=== PATIENT | female | born 1985 | race Caucasian/White ===

== ENCOUNTER 2018-09-02 18:46 | Inpatient (IN) | payer MEDICARE ==
[2018-09-02 18:53] VITALS: BMI 30.7
--- NOTE | 2018-09-02 19:33 | PDOC ---
Attending Attestation - Resident Resident Name: LenoHollis malhotra - ED Attending Attestation I have performed the following: I have examined & evaluated the patient, The case was reviewed & discussed with the resident, I agree w/resident's findings & plan, Exceptions are as noted - HPI HPI: 09/02/18 20:03 Ms Leiva is a 33 yo F who reports no past medical history She presents to the ER via ambulance with her due to alterations in mental status He noticed yesterday that she was more quiet and less responsive She awoke today at approximately noon and he noted that she was much more quiet He decided to call ems when her symptoms did not improve this evening She denies headache or neck pain She denies recent viral illness She denies pain of any kind in the chest or the abdomen No nausea or vomiting No diarrhea No prior episodes like this She can not tell me if she feels confused She does not respond when I ask why her responses are so slow - Physicial Exam PE: 09/02/18 19:59 GENERAL: The patient is in no acute distress, calm, answers all questions by examiner, pale appearing HEAD: Normal EYES: PERRLA, EOMI, sclera anicteric, conjunctiva clear. ENT: Ears normal, nares patent, oropharynx clear without exudates. Moist mucous membranes. NECK: Normal range of motion, supple without nuchal rigidity LUNGS: Breath sounds equal, clear to auscultation bilaterally. No wheezes, and no crackles. HEART:Regular rate and rhythm, normal S1 and S2 without murmur, rub or gallop. ABDOMEN: Soft, nontender, normoactive bowel sounds. No guarding, no rebound. EXTREMITIES: Normal range of motion, no edema. NEUROLOGICAL: Cranial nerves II through XII grossly intact. Normal speech. Pt is slow to answer questions Seems to be searching for her response Is able to focus on examiner Moves all extremities, ambulatory with a steady gait MUSCULOSKELETAL: Back non-tender to palpation, no CVA tenderness SKIN: Warm, Dry, normal turgor, no rashes or lesions noted. 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 - Medical Decision Making 09/02/18 20:08 DD is broad: Fluid and electrolyte disturbances, Infection (urinary tract, respiratory tract , skin and soft tissue), Drug use, Metabolic disorders (hypoglycemia, hypercalcemia, uremia, liver failure, thyrotoxicosis), Will do: Labs UA U tox Ekg CXR CT head Admit 09/02/18 20:17 Laboratory Tests 09/02/18 09/02/18 19:15 19:56 WBC 12.5 H Hgb 5.3 L* Hct 18.6 L Plt Count 487 H POC Glucometer 360 09/02/18 20:26 Laboratory Tests 09/02/18 19:41 PT with INR 14.20 H INR 1.20 H 09/02/18 20:38 Laboratory Tests 09/02/18 19:41 Urine Blood 1+ H Urine Nitrite Negative Ur Leukocyte Esterase 1+ H 09/02/18 20:42 Laboratory Tests 09/02/18 19:41 Urine WBC (Auto) 73 Urine RBC (Auto) 7 UTI - Will give Ceftriaxone Given altered mentation - CT head and LP Anemia - Will transfuse Elevated blood glucose (possibly diabetic) EKG - ST rate of 110 bpm, axis nml, intervals abnormal :pr: 136ms, QRS: 92ms, QTc: 519ms, no st elevation, st depression I, v6, nml r wave progression, no pathological q waves 09/02/18 20:47 09/02/18 21:24 Laboratory Tests 09/02/18 09/02/18 09/02/18 19:41 19:56 20:30 VBG pH 7.38 POC VBG pCO2 43.0 POC VBG pO2 37.0 Mixed VBG HCO3 24.5 Sodium 137 Potassium 3.6 Chloride 104 Carbon Dioxide 26 BUN 11 Creatinine 0.7 AST 9 L ALT 12 L TSH 1.87 Serum , Qual Negative Admit to hospitalist service
[2018-09-02] MEDS ORDERED: SODIUM CHLORIDE 1,000 ML IV STA (19:40)
--- NOTE | 2018-09-02 19:52 | PDOC ---
History of Present Illness - General Chief Complaint: Altered Mental Status Stated Complaint: SICK Time Seen by Provider: 09/02/18 19:31 History Source: Patient Exam Limitations: Clinical Condition - History of Present Illness Initial Comments: 09/02/18 19:43 Patient is a 33F with no significant medical history here today complaining of altered mental status this morning. Her is the main provider of the history. Patient is able to speak, and denies pain, but does not answer most questions. states that he found her this afternoon clicking a mouse on a computer that was off and was refusing to talk to him. EMS reports that FSG was in 400s. denies any fevers, chills, nausea, vomiting. Her states that they have been trying to get but she had her period which ended yesterday and was heavy. reports that she was talking less yesterday. No headache, neck pain, back pain, abdominal pain, and dysuria complained of by patient or noted by . denies psych history, psych admissions, psych meds. denies drug use. 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 Past History - Past Medical History Allergies/Adverse Reactions: Allergies Allergy/AdvReac Type Severity Reaction Status Date / Time No Known Allergies Allergy Verified 09/02/18 19:31 Home Medications: Ambulatory Orders NK [No Known Home Medication] 09/02/18 - Suicide/Smoking/Psychosocial Hx Smoking History: Unknown if ever smoked Review of Systems - Review of Systems Able to Perform ROS?: No (2/2 clinical condition) *Physical Exam - Vital Signs Last Vital Signs Temp Pulse Resp BP Pulse Ox 98.7 F 106 H 20 174/92 H 100 09/02/18 18:48 09/02/18 18:48 09/02/18 18:48 09/02/18 18:48 09/02/18 18:48 - Physical Exam Comments: 09/02/18 19:53 GENERAL: Awake, alert, and fully oriented, in no acute distress HEAD: No signs of trauma, normocephalic, atraumatic EYES: PERRLA, EOMI, sclera anicteric, conjunctiva clear ENT: Auricles normal inspection, hearing grossly normal, nares patent, oropharynx clear without exudates. Moist mucosa NECK: Normal ROM, supple, no lymphadenopathy, JVD, or masses LUNGS: No distress, clear to auscultation bilaterally HEART: Regular rate and rhythm, normal S1 and S2, no murmurs, rubs or gallops, peripheral pulses normal and equal bilaterally. ABDOMEN: Soft, nontender, normoactive bowel sounds. No guarding, no rebound. No masses EXTREMITIES: Normal inspection, Normal range of motion, no edema. No clubbing or cyanosis. NEUROLOGICAL: Cranial nerves II through XII grossly intact. Normal speech, normal gait, no focal sensorimotor deficits. 5/5 strength in all extremities PSYCH: Flat affect, does not answer questions, alert, oriented, will give basic answers to questions about identity after repeated attempts, otherwise says "umm " and does not answer. SKIN: Warm, Dry, normal turgor, no rashes or lesions noted. Moderate Sedation - Procedure Monitoring Vital Signs: Procedure Monitoring Vital Signs Temperature 98.7 F 09/02/18 18:48 Pulse Rate 106 H 09/02/18 18:48 Respiratory Rate 20 09/02/18 18:48 Blood Pressure 174/92 H 09/02/18 18:48 O2 Sat by Pulse Oximetry (%) 100 09/02/18 18:48 Procedures - Lumbar Puncture Indication: AMS, Fever CT Scan: Yes Betadine Prep: Yes Position: Left lateral decubitus Site: L5-S1 Local Anesthesia: 1% Lidocaine with epi Volume(ml): 5 Lumbar Puncture Kit: Adult Opening Pressure(mmHg): 40 Traumatic Tap: No Clear Fluid: Yes Complications: No ED Treatment Course - LABORATORY CBC & Chemistry Diagram: 09/02/18 19:56 09/02/18 19:56 - ADDITIONAL ORDERS Additional order review: Laboratory Results 09/02/18 19:15 POC Glucometer 360 09/02/18 19:15 POC Glucometer 360 - RADIOLOGY Radiology Studies Ordered: Category Date Time Status HEAD CT WITHOUT CONTRAST [CT] Stat CT Scan 09/02/18 19:35 Ordered CHEST PA & LAT [RAD] Stat Radiology 09/02/18 19:42 Ordered Medical Decision Making - Medical Decision Making 09/02/18 19:57 Patient is 33F with no significant medical history here today complaining of AMS. Vitals notable for tachycardia and hypertension. Normal neuro exam, including gait. Patient has free and easy movement of neck. Complains of no pain. No fever. DDx includes, but is not limited to: DKA, HHS, UTI, , tumor, bleed, primary psych. Do not believe patient has menigitis or encephalitis given lack of fever, normal neuro exam, no headache and no neck pain. Will workup with cbc, cmp, ekg, ua, uc, head ct, cxr, tsh, drug screen. Will treat with 1L fluids. 09/02/18 21:09 Repeat vitals show fever and tachycardia, with the mental status change, septic workup initiated. CBC shows hgb in 5s. Patient consented with head nod, signed consent for transfusion. exam shows no blood in vaginal vault. No CMT or adnexal tenderness. Rectal exam shows small hemorrhoid, no blood or masses on exam. Normal rectal tone. CMP shows no gap. Glucose to 360. Otherwise normal. UA shows evidence of UTI. Patient's change in mental status is not satisfactorily explained by anemia and uti, although possible. DDx broadened to include meningitis and encephalitis. Will perform lumbar puncture, treat empirically with acyclovir, ceftriaxone, vancomycin. Doing head ct prior given altered level of consciousness. 09/02/18 21:32 EKG shows sinus tach with rate of 110. Narrow QRS, normal intervals. No st elevations/depressions. No significant t wave abnormalities. 09/02/18 22:[address] normal. Patient now fully responsive after 1L. Patient and family considering consent for lumbar puncture. 09/03/18 00:32 Laboratory Tests 09/02/18 23:33 CSF Appearance Clear CSF Color Colorless CSF WBC 0 CSF RBC 1 CSF Glucose 152 H CSF Total Protein 26 CSF results show no WBCs. Protein normal. Glucose elevated, but less than 0.6 of initial CMP glucose. Suspect glucose likely lower now after administration of fluid. CXR clear. 09/03/18 06:43 D/w Dr Martel, admitted to m/s. *DC/Admit/Observation/Transfer Diagnosis at time of Disposition: Fever, Altered mental status, Anemia - Discharge Dispostion Condition at time of disposition: Stable Decision to Admit order: Yes - Referrals - Patient Instructions - Post Discharge Activity
[2018-09-02 20:06] LABS: BASO % 1.3 % (0-2.0); EOS % 0.2 % (0-4.5); HEMATOCRIT 18.6 % (32.4-45.2); LYMPH % 14.3 % (8-40); MCHC 28.2 g/dl (32.0-36.0); MEAN CELL VOLUME 64.5 fl (80-96); MEAN PLT VOLUME 7.4 fl (7.5-11.1); MONO % 6.4 % (3.8-10.2); NEUT % 77.8 % (42.8-82.8); PLATELET COUNT 487 K/MM3 (134-434); RBC 2.89 M/mm3 (3.60-5.2); RDW 21.4 % (11.6-15.6); WHITE BLOOD COUNT 12.5 K/mm3 (4.0-10.0)
[2018-09-02 20:08] LABS: MCH 18.2 pg (25.7-33.7)
[2018-09-02 20:10] LABS: HEMOGLOBIN 5.3 GM/dL (10.7-15.3)
[2018-09-02 20:20] LABS: URINE APPEARANCE SLCLOUDY; URINE BILIRUBIN NEGATIVE (<2.0 mg/dL); URINE COLOR LTYELLOW; URINE GLUCOSE (UA) 3+ (NEGATIVE); URINE KETONE 2+ (NEGATIVE); URINE LEUK ESTERASE 1+ (NEGATIVE); URINE NITRITE NEGATIVE (NEGATIVE); URINE PROTEIN 1+ (NEGATIVE); URINE UROBILINOGEN NEGATIVE mg/dL (0.2-1.0)
[2018-09-02 20:22] LABS: INR 1.2 (0.83-1.09); PROTHROMBIN TIME (PATIENT) 14.2 SEC (9.7-13.0)
[2018-09-02 20:36] LABS: EPI CELLS RARE /HPF (FEW); URINE MUCUS RARE
[2018-09-02 20:51] LABS: VENOUS PH 7.38 (7.32-7.42)
[2018-09-02] MEDS ORDERED: ACETAMINOPHEN INJECTION 100 ML IVPB ONE (21:01)
[2018-09-02] MEDS ORDERED: ACETAMINOPHEN 1000 MG/100 ML VIAL (NON FORMULARY) IVPB ONE (21:01)
[2018-09-02 21:10] LABS: ALBUMIN 3.6 g/dl (3.4-5.0); ALK PHOS 68 U/L (45-117); ANION GAP 8 MMOL/L (8-16); BILIRUBIN,TOTAL 0.6 mg/dL (0.2-1); BLOOD UREA NITROGEN 11 mg/dL (7-18); CALCIUM 7.9 mg/dL (8.5-10.1); CHLORIDE 104 mmol/L (98-107); CO2 26 mmol/L (21-32); CREATININE 0.7 mg/dL (0.55-1.3); POTASSIUM 3.6 mmol/L (3.5-5.1); SGOT/AST 9 U/L (15-37); SGPT/ALT 12 U/L (13-61); SODIUM 137 mmol/L (136-145); TOT PROT 7.4 g/dl (6.4-8.2)
[2018-09-02 21:12] LABS: GLUCOSE,RANDOM 360 mg/dL (74-106)
[2018-09-02] MEDS ORDERED: VANCOMYCIN 1,000 MG in DEXTROSE 5%-WATER - 250 ML IVPB ONE (21:16)
[2018-09-02] MEDS ORDERED: ACYCLOVIR INJECTION 900 MG in DEXTROSE 5%-WATER - 100 ML IVPB ONE (21:16)
[2018-09-02] MEDS ORDERED: CEFTRIAXONE 2,000 MG in DEXTROSE 5%-WATER - 50 ML IVPB ONE (21:16)
[2018-09-02 22:10] LABS: ANISOCYTOSIS 2+; TEAR DROP CELLS FEW
[2018-09-02 22:11] LABS: PLATELET ESTIMATE ADEQUATE
[2018-09-02] MEDS ORDERED: CEFTRIAXONE 2 GM/100 ML BAG IVPB ONE (22:15)
[2018-09-02] MEDS ORDERED: VANCOMYCIN 1 GRAM (PRE-DOCKED) 1,000 MG/250 ML BAG IVPB ONE (22:16)
[2018-09-02 22:23] LABS: COCAINE, UR NEGATIVE ng/ml (CUTOFF=300); METHADONE, UR NEGATIVE ng/ml (CUTOFF=300); OPIATES, URI NEGATIVE ng/ml (CUTOFF=300); PHENCYCLIDINE,URINE NEGATIVE ng/ml (CUTOFF=25); URINE BARBITURATES NEGATIVE ng/ml (CUTOFF=200); URINE BENZODIAZEPINES NEGATIVE ng/ml (CUTOFF=200)
[2018-09-02 22:24] LABS: URINE AMPHETAMINES NEGATIVE ng/ml (CUTOFF=500)
[2018-09-02] MEDS ORDERED: ACYCLOVIR INJECTION 900 MG in DEXTROSE 5%-WATER - 250 ML IVPB ONE (22:30)
[2018-09-02 23:45] LABS: CSF APPEARANCE CLEAR; CSF COLOR COLORLESS; CSF WBC 0
[2018-09-03 00:03] LABS: ACETONE SERUM POSITIVE SMALL 1+ (NEGATIVE)
[2018-09-03 00:24] LABS: BF GLUCOSE (CSF ONLY) 152 mg/dL (40-70)
--- NOTE | 2018-09-03 00:52 | PN ---
Teaching Attending Note Name of Resident: Anh Hernandez ATTENDING PHYSICIAN STATEMENT I saw and evaluated the patient. I reviewed the resident's note and discussed the case with the resident. I agree with the resident's findings and plan as documented. SUBJECTIVE: Patient is a 33 year old woman with no significant medical history here today complaining of altered mental status this morning. Her is the main provider of the history. Patient is able to speak, and denies pain, but does not answer most questions. states that he found her this afternoon clicking a mouse on a computer that was off and was refusing to talk to him. EMS reports that FSG was in 400s. denies any fevers, chills, nausea, vomiting. Her states that they have been trying to get but she had her period which ended yesterday and was heavy. reports that she was talking less yesterday. No headache, neck pain, back pain, abdominal pain, and dysuria complained of by patient or noted by . denies psych history, psych admissions, psych meds. denies drug use. 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 Vaginal exam done by ER staff didnot reveal any abnormal findings. OBJECTIVE: Alert Vital Signs Period Temp Pulse Resp BP Sys/Floyd Pulse Ox Last 24 Hr 98.7 F-100.5 F 106-119 20-20 154-174/89-92 96-100 HEENT: No Jaundice, eye redness or discharge, PERRLA, EOMI. Normocephalic, atraumatic. External ears are normal and hearing is grossly intact. No nasal discharge. Neck: Supple, nontender. No palpable adenopathy or thyromegaly. No JVD Chest: Good effort. Clear to auscultation and percussion. Heart: Regular. No S3, rub or murmur Abdomen: Not distended, soft, nontender and no HSM. No rebound or guarding. Normoactive bowel sounds. Ext: Peripheral pulses intact. No leg edema. Skin: Warm and dry. No petechiae, rash or ecchymosis. Neuro: Alert. Oriented x3. CN 2-12 grossly intact. Sensation grossly intact in all four extremities and DTR are symmetric. Psych: Flat affect; blank stare; withdrawn; poor memory - does not remember LMP (ended yesterday) or marriage date. Current Medications Generic Name Dose Route Start Last Admin Trade Name Robbin PRN Reason Stop Dose Admin Acyclovir 900 mg/ Dextrose 268 mls @ 100 mls/hr 09/02/18 22:30 09/02/18 22:58 IVPB 09/03/18 01:10 100 mls/hr ONCE ONE Administration Home Medications Medication Instructions Recorded NK [No Known Home Medication] 09/02/18 Abnormal Lab Results 09/02/18 09/02/18 09/02/18 19:41 19:41 19:56 WBC 12.5 H RBC 2.89 L Hgb 5.3 L* Hct 18.6 L MCV 64.5 L MCH 18.2 L MCHC 28.2 L RDW 21.4 H Plt Count 487 H MPV 7.4 L Absolute Neuts (auto) 9.7 H Neutrophils % (Manual) 84.0 H PT with INR 14.20 H INR 1.20 H Random Glucose Calcium AST ALT Urine Protein 1+ H Urine Glucose (UA) 3+ H Urine Ketones 2+ H Urine Blood 1+ H Ur Leukocyte Esterase 1+ H CSF Glucose Salicylates Acetaminophen Acetone, Qual Crossmatch 09/02/18 09/02/18 09/02/18 19:56 20:30 21:12 WBC RBC Hgb Hct MCV MCH MCHC RDW Plt Count MPV Absolute Neuts (auto) Neutrophils % (Manual) PT with INR INR Random Glucose 360 H* Calcium 7.9 L AST 9 L ALT 12 L Urine Protein Urine Glucose (UA) Urine Ketones Urine Blood Ur Leukocyte Esterase CSF Glucose Salicylates < 1.7 L Acetaminophen < 2.00 L Acetone, Qual Positive small 1+ H Crossmatch See Detail 09/02/18 23:33 WBC RBC Hgb Hct MCV MCH MCHC RDW Plt Count MPV Absolute Neuts (auto) Neutrophils % (Manual) PT with INR INR Random Glucose Calcium AST ALT Urine Protein Urine Glucose (UA) Urine Ketones Urine Blood Ur Leukocyte Esterase CSF Glucose 152 H Salicylates Acetaminophen Acetone, Qual Crossmatch ASSESSMENT AND PLAN: 1. AMS - Preliminary analysis of CSF does not suggest meningitis. Patient got STAT doses of vancomycin, rocephin and acyclovir after LP. AMS likely multifactorial including toxic metabolic encephalopathy due to UTI, effects of severe anemia and hyperglycemic hyperosmolar state. Will continue Rocephin for UTI and IV NS. Consult ID and Neurology. If AMS persists after resolution of metabolic issues, then a psychiatry consult will be indicated. 2. New onset DM Will implement sliding scale insulin regimen before transitioning to long acting insulin and metformin. Consult endocrine. Provide comprehensive diabetes care with patient teaching and counseling about the importance of adherence to prescribed diabetes regimen, euglycemia, eye care and foot care. 3. Low MCV Anemia - Likely due to heavy menstrual blood loss. Will get pelvic sonogram to rule out fibroids and refer to FOOD CONCESSION MANAGER. Do basic anemia work up including serial stool guaiacs, reticulocyte count, iron studies and Hb electrophoresis. Being transfused PRBC. Would benefit from IV therapy going forward to preempt future PRBC transfusions if underlying cause is not promptly rectified. 4. Obesity - Will provide patient all the necessary assistance, counseling and positive reinforcement to facilitate weight loss. Consult carbon plant grinder. 5. Uncontrolled Hypertension - Not known to have hypertension. Will monitor and treat if it persists (>150 mmHg systolic). Needs work up for secondary hypertension when stable if hypertension persists. Nonpharmacologic measures to control hypertension like weight loss, salt restriction and exercise discussed. 6. DVT prophylaxis - Lovenox 40 mg SQ q 24 hours. 7. Advance directives - Full code
--- NOTE | 2018-09-03 01:36 | HP ---
CHIEF COMPLAINT:altered mental status PCP:None HISTORY OF PRESENT ILLNESS: Patient is a 33 year old male with no significant past medical history, BIBEMS due to altered mental status for 1 day. Patient is a poor historian, unable to recall anything that had happened recently, or the last time she was well. Patient would answer yes or no to questions, but could not answer in sentences. Most of the history is from the , reporting that he found the patient this afternoon clicking on the mouse on a computer that was turned off and was not responding to him. He called EMS, and blood sugar was noted to be >400. Patient reported she usually has heavy menses with dysmenorrhea. Of note too, patient and has been trying to get for a while. She denies fever, chills, headache, dizziness, neck pain, changes in vision, nausea, vomiting, chest pain, SOB, palpitations, abdominal pain, diarrhea, urinary symptoms, numbness or tingling. ER course was notable for: (1)Hgb 5.3, 2units prbc ordered (2)Glu 360, acetone 1+ (3)Lumbar tap done, CSF studies pending (4)UA: 73 wbc, 1+LYNSEY, 3+glucose Recent Travel:denies PAST MEDICAL HISTORY:none PAST SURGICAL HISTORY:none Social History: Smoking:denies Alcohol:denies Drugs: denies Family History:unknown Allergies No Known Allergies Allergy (Verified 09/02/18 19:31) HOME MEDICATIONS: Home Medications Medication Instructions Recorded NK [No Known Home Medication] 09/02/18 REVIEW OF SYSTEMS CONSTITUTIONAL: Absent: fever, chills, diaphoresis, generalized weakness, malaise, loss of appetite, weight change HEENT: Absent: rhinorrhea, nasal congestion, throat pain, throat swelling, difficulty swallowing, mouth swelling, ear pain, eye pain, visual changes CARDIOVASCULAR: Absent: chest pain, syncope, palpitations, irregular heart rate, lightheadedness , peripheral edema RESPIRATORY: Absent: cough, shortness of breath, dyspnea with exertion, orthopnea, wheezing, stridor, hemoptysis GASTROINTESTINAL: Absent: abdominal pain, abdominal distension, nausea, vomiting, diarrhea, constipation, melena, hematochezia GENITOURINARY: Absent: dysuria, frequency, urgency, hesitancy, hematuria, flank pain, genital pain MUSCULOSKELETAL: Absent: myalgia, arthralgia, joint swelling, back pain, neck pain SKIN: Absent: rash, itching, pallor HEMATOLOGIC/IMMUNOLOGIC: Absent: easy bleeding, easy bruising, lymphadenopathy, frequent infections ENDOCRINE: Absent: unexplained weight gain, unexplained weight loss, heat intolerance, cold intolerance NEUROLOGIC: Absent: headache, focal weakness or paresthesias, dizziness, unsteady gait, seizure, mental status changes, bladder or bowel incontinence PSYCHIATRIC: Absent: anxiety, depression, suicidal or homicidal ideation, hallucinations. PHYSICAL EXAMINATION Vital Signs - 24 hr 09/02/18 09/02/18 09/02/18 18:48 20:17 20:50 Temperature 98.7 F 100.5 F H Pulse Rate 106 H 110 H Pulse Rate [ 116 H Apical] Respiratory 20 20 20 Rate Blood Pressure 174/92 H 174/91 H Blood Pressure 172/89 H [Left Arm] O2 Sat by Pulse 100 96 98 Oximetry (%) 09/02/18 21:00 Temperature Pulse Rate Pulse Rate [ 119 H Apical] Respiratory 20 Rate Blood Pressure Blood Pressure 154/92 [Left Arm] O2 Sat by Pulse 98 Oximetry (%) GENERAL: Awake and alert, orientedx3, in no acute distress. HEAD: Normal with no signs of trauma. EYES: PERRLA, EOMI, sclera anicteric, pale palpebral conjunctivae. EARS, NOSE, THROAT: Ears normal, oropharynx clear without exudates. Moist mucous membranes. NECK: Normal range of motion, supple without lymphadenopathy, JVD, or masses. LUNGS: Breath sounds equal, clear to auscultation bilaterally. HEART: Tachycardic, +holosystolic murmur at LUSB ABDOMEN: Soft, nontender, not distended, normoactive bowel sounds. MUSCULOSKELETAL: Normal range of motion at all joints. No bony deformities or tenderness. No CVA tenderness. UPPER EXTREMITIES: 2+ pulses, warm, well-perfused. No peripheral edema. LOWER EXTREMITIES: 2+ pulses, warm, well-perfused. No peripheral edema. NEUROLOGICAL: AAOx3. Cranial nerves II-XII intact. Normal speech. Motor strength 5/5, Sensation intact. PSYCHIATRIC: Cooperative. Good eye contact. SKIN: Warm, dry, normal turgor, no rashes or lesions noted, normal capillary refill. Laboratory Results - last 24 hr 09/02/18 09/02/18 09/02/18 19:15 19:30 19:41 WBC RBC Hgb Hct MCV MCH MCHC RDW Plt Count MPV Absolute Neuts (auto) Neutrophils % Neutrophils % (Manual) Band Neutrophils % Lymphocytes % Lymphocytes % (Manual) Monocytes % Monocytes % (Manual) Eosinophils % Eosinophils % (Manual) Basophils % Basophils % (Manual) Myelocytes % (Man) Nucleated RBC % Hypochromia Platelet Estimate Poikilocytosis Anisocytosis Tear Drop Cells PT with INR 14.20 H INR 1.20 H VBG pH POC VBG pCO2 POC VBG pO2 Mixed VBG HCO3 Sodium Potassium Chloride Carbon Dioxide Anion Gap BUN Creatinine Creat Clearance w eGFR POC Glucometer 360 Random Glucose Calcium Total Bilirubin AST ALT Alkaline Phosphatase Creatine Kinase Troponin I Total Protein Albumin TSH Serum , Qual Urine Color Urine Appearance Urine pH Ur Specific Cash Urine Protein Urine Glucose (UA) Urine Ketones Urine Blood Urine Nitrite Urine Bilirubin Urine Urobilinogen Ur Leukocyte Esterase Urine WBC (Auto) Urine RBC (Auto) Ur Epithelial Cells Urine Mucus CSF Appearance CSF Color CSF WBC CSF RBC CSF Neutrophils CSF Lymphocytes CSF Eosinophils CSF Basophils CSF Macrophages CSF Plasma Cells CSF Diff Comment CSF Comment CSF Glucose CSF Total Protein Stool Occult Blood Salicylates Opiates Screen Methadone Screen Acetaminophen Barbiturate Screen Phencyclidine Screen Ur Amphetamines Screen MDMA (Ecstasy) Screen Benzodiazepines Screen Cocaine Screen U Marijuana (THC) Screen Acetone, Qual Influenza A (Rapid) Influenza B (Rapid) Anti-A Titer Blood Type O POSITIVE Antibody Screen Crossmatch 09/02/18 09/02/18 09/02/18 19:41 19:41 19:41 WBC RBC Hgb Hct MCV MCH MCHC RDW Plt Count MPV Absolute Neuts (auto) Neutrophils % Neutrophils % (Manual) Band Neutrophils % Lymphocytes % Lymphocytes % (Manual) Monocytes % Monocytes % (Manual) Eosinophils % Eosinophils % (Manual) Basophils % Basophils % (Manual) Myelocytes % (Man) Nucleated RBC % Hypochromia Platelet Estimate Poikilocytosis Anisocytosis Tear Drop Cells PT with INR INR VBG pH POC VBG pCO2 POC VBG pO2 Mixed VBG HCO3 Sodium Potassium Chloride Carbon Dioxide Anion Gap BUN Creatinine Creat Clearance w eGFR POC Glucometer Random Glucose Calcium Total Bilirubin AST ALT Alkaline Phosphatase Creatine Kinase Troponin I Total Protein Albumin TSH Serum , Qual Negative Urine Color Ltyellow Urine Appearance Slcloudy Urine pH 6.0 Ur Specific Cash 1.025 Urine Protein 1+ H Urine Glucose (UA) 3+ H Urine Ketones 2+ H Urine Blood 1+ H Urine Nitrite Negative Urine Bilirubin Negative Urine Urobilinogen Negative Ur Leukocyte Esterase 1+ H Urine WBC (Auto) 73 Urine RBC (Auto) 7 Ur Epithelial Cells Rare Urine Mucus Rare CSF Appearance CSF Color CSF WBC CSF RBC CSF Neutrophils CSF Lymphocytes CSF Eosinophils CSF Basophils CSF Macrophages CSF Plasma Cells CSF Diff Comment CSF Comment CSF Glucose CSF Total Protein Stool Occult Blood Salicylates Opiates Screen Methadone Screen Acetaminophen Barbiturate Screen Phencyclidine Screen Ur Amphetamines Screen MDMA (Ecstasy) Screen Benzodiazepines Screen Cocaine Screen U Marijuana (THC) Screen Acetone, Qual Influenza A (Rapid) Influenza B (Rapid) Anti-A Titer Cancelled Blood Type Cancelled Antibody Screen Cancelled Crossmatch 09/02/18 09/02/18 09/02/18 19:41 19:56 19:56 WBC 12.5 H RBC 2.89 L Hgb 5.3 L* Hct 18.6 L MCV 64.5 L MCH 18.2 L MCHC 28.2 L RDW 21.4 H Plt Count 487 H MPV 7.4 L Absolute Neuts (auto) 9.7 H Neutrophils % 77.8 Neutrophils % (Manual) 84.0 H Band Neutrophils % 0.0 Lymphocytes % 14.3 Lymphocytes % (Manual) 10.0 Monocytes % 6.4 Monocytes % (Manual) 4 Eosinophils % 0.2 Eosinophils % (Manual) 1.0 Basophils % 1.3 Basophils % (Manual) 0.0 Myelocytes % (Man) 1 Nucleated RBC % 0 Hypochromia 3+ Platelet Estimate Adequate Poikilocytosis 1+ Anisocytosis 2+ Tear Drop Cells Few PT with INR INR VBG pH POC VBG pCO2 POC VBG pO2 Mixed VBG HCO3 Sodium 137 Potassium 3.6 Chloride 104 Carbon Dioxide 26 Anion Gap 8 BUN 11 Creatinine 0.7 Creat Clearance w eGFR > 60 POC Glucometer Random Glucose 360 H* Calcium 7.9 L Total Bilirubin 0.6 AST 9 L ALT 12 L Alkaline Phosphatase 68 Creatine Kinase Troponin I Total Protein 7.4 Albumin 3.6 TSH 1.87 Serum , Qual Urine Color Urine Appearance Urine pH Ur Specific Cash Urine Protein Urine Glucose (UA) Urine Ketones Urine Blood Urine Nitrite Urine Bilirubin Urine Urobilinogen Ur Leukocyte Esterase Urine WBC (Auto) Urine RBC (Auto) Ur Epithelial Cells Urine Mucus CSF Appearance CSF Color CSF WBC CSF RBC CSF Neutrophils CSF Lymphocytes CSF Eosinophils CSF Basophils CSF Macrophages CSF Plasma Cells CSF Diff Comment CSF Comment CSF Glucose CSF Total Protein Stool Occult Blood Salicylates Opiates Screen Negative Methadone Screen Negative Acetaminophen Barbiturate Screen Negative Phencyclidine Screen Negative Ur Amphetamines Screen Negative MDMA (Ecstasy) Screen Negative Benzodiazepines Screen Negative Cocaine Screen Negative U Marijuana (THC) Screen Negative Acetone, Qual Positive small 1+ H Influenza A (Rapid) Influenza B (Rapid) Anti-A Titer Blood Type Antibody Screen Crossmatch 09/02/18 09/02/18 09/02/18 20:30 20:30 21:00 WBC RBC Hgb Hct MCV MCH MCHC RDW Plt Count MPV Absolute Neuts (auto) Neutrophils % Neutrophils % (Manual) Band Neutrophils % Lymphocytes % Lymphocytes % (Manual) Monocytes % Monocytes % (Manual) Eosinophils % Eosinophils % (Manual) Basophils % Basophils % (Manual) Myelocytes % (Man) Nucleated RBC % Hypochromia Platelet Estimate Poikilocytosis Anisocytosis Tear Drop Cells PT with INR INR VBG pH 7.38 POC VBG pCO2 43.0 POC VBG pO2 37.0 Mixed VBG HCO3 24.5 Sodium Potassium Chloride Carbon Dioxide Anion Gap BUN Creatinine Creat Clearance w eGFR POC Glucometer Random Glucose Calcium Total Bilirubin AST ALT Alkaline Phosphatase Creatine Kinase Troponin I Total Protein Albumin TSH Serum , Qual Urine Color Urine Appearance Urine pH Ur Specific Cash Urine Protein Urine Glucose (UA) Urine Ketones Urine Blood Urine Nitrite Urine Bilirubin Urine Urobilinogen Ur Leukocyte Esterase Urine WBC (Auto) Urine RBC (Auto) Ur Epithelial Cells Urine Mucus CSF Appearance CSF Color CSF WBC CSF RBC CSF Neutrophils CSF Lymphocytes CSF Eosinophils CSF Basophils CSF Macrophages CSF Plasma Cells CSF Diff Comment CSF Comment CSF Glucose CSF Total Protein Stool Occult Blood Negative Salicylates Opiates Screen Methadone Screen Acetaminophen Barbiturate Screen Phencyclidine Screen Ur Amphetamines Screen MDMA (Ecstasy) Screen Benzodiazepines Screen Cocaine Screen U Marijuana (THC) Screen Acetone, Qual Influenza A (Rapid) Influenza B (Rapid) Anti-A Titer Blood Type O POSITIVE Antibody Screen Negative Crossmatch See Detail 09/02/18 09/02/18 09/02/18 21:09 21:12 21:12 WBC RBC Hgb Hct MCV MCH MCHC RDW Plt Count MPV Absolute Neuts (auto) Neutrophils % Neutrophils % (Manual) Band Neutrophils % Lymphocytes % Lymphocytes % (Manual) Monocytes % Monocytes % (Manual) Eosinophils % Eosinophils % (Manual) Basophils % Basophils % (Manual) Myelocytes % (Man) Nucleated RBC % Hypochromia Platelet Estimate Poikilocytosis Anisocytosis Tear Drop Cells PT with INR INR VBG pH POC VBG pCO2 POC VBG pO2 Mixed VBG HCO3 Sodium Potassium Chloride Carbon Dioxide Anion Gap BUN Creatinine Creat Clearance w eGFR POC Glucometer Random Glucose Calcium Total Bilirubin AST ALT Alkaline Phosphatase Creatine Kinase 61 Troponin I 0.02 Total Protein Albumin TSH Serum , Qual Urine Color Urine Appearance Urine pH Ur Specific Cash Urine Protein Urine Glucose (UA) Urine Ketones Urine Blood Urine Nitrite Urine Bilirubin Urine Urobilinogen Ur Leukocyte Esterase Urine WBC (Auto) Urine RBC (Auto) Ur Epithelial Cells Urine Mucus CSF Appearance CSF Color CSF WBC CSF RBC CSF Neutrophils CSF Lymphocytes CSF Eosinophils CSF Basophils CSF Macrophages CSF Plasma Cells CSF Diff Comment CSF Comment CSF Glucose CSF Total Protein Stool Occult Blood Salicylates < 1.7 L Opiates Screen Methadone Screen Acetaminophen < 2.00 L Barbiturate Screen Phencyclidine Screen Ur Amphetamines Screen MDMA (Ecstasy) Screen Benzodiazepines Screen Cocaine Screen U Marijuana (THC) Screen Acetone, Qual Influenza A (Rapid) Negative Influenza B (Rapid) Negative Anti-A Titer Blood Type Antibody Screen Crossmatch 09/02/18 23:33 WBC RBC Hgb Hct MCV MCH MCHC RDW Plt Count MPV Absolute Neuts (auto) Neutrophils % Neutrophils % (Manual) Band Neutrophils % Lymphocytes % Lymphocytes % (Manual) Monocytes % Monocytes % (Manual) Eosinophils % Eosinophils % (Manual) Basophils % Basophils % (Manual) Myelocytes % (Man) Nucleated RBC % Hypochromia Platelet Estimate Poikilocytosis Anisocytosis Tear Drop Cells PT with INR INR VBG pH POC VBG pCO2 POC VBG pO2 Mixed VBG HCO3 Sodium Potassium Chloride Carbon Dioxide Anion Gap BUN Creatinine Creat Clearance w eGFR POC Glucometer Random Glucose Calcium Total Bilirubin AST ALT Alkaline Phosphatase Creatine Kinase Troponin I Total Protein Albumin TSH Serum , Qual Urine Color Urine Appearance Urine pH Ur Specific Cash Urine Protein Urine Glucose (UA) Urine Ketones Urine Blood Urine Nitrite Urine Bilirubin Urine Urobilinogen Ur Leukocyte Esterase Urine WBC (Auto) Urine RBC (Auto) Ur Epithelial Cells Urine Mucus CSF Appearance Clear CSF Color Colorless CSF WBC 0 CSF RBC 1 CSF Neutrophils No Result Required. CSF Lymphocytes No Result Required. CSF Eosinophils No Result Required. CSF Basophils No Result Required. CSF Macrophages No Result Required. CSF Plasma Cells No Result Required. CSF Diff Comment No Result Required. CSF Comment No Result Required. CSF Glucose 152 H CSF Total Protein 26 Stool Occult Blood Salicylates Opiates Screen Methadone Screen Acetaminophen Barbiturate Screen Phencyclidine Screen Ur Amphetamines Screen MDMA (Ecstasy) Screen Benzodiazepines Screen Cocaine Screen U Marijuana (THC) Screen Acetone, Qual Influenza A (Rapid) Influenza B (Rapid) Anti-A Titer Blood Type Antibody Screen Crossmatch ASSESSMENT/PLAN: Patient is a 33 year old male with no significant past medical history, BIBEMS due to altered mental status for 1 day. #Acute toxic metabolic encephalopathy -AMS may be likely multifactorial -May be 2/2 Sepsis from UTI vs Hyperosmolar hyperglycemic state vs severe anemia vs elevated BP vs ?depression -Neurology consult. -Head CT negative of any acute intracranial pathology. #Sepsis likely 2/2 UTI -lumbar tap done, CSF studies pending, CSF WBC 0 -UA: 73 WBC, 1+LE -Ceftriaxone, Vancomycin and Acyclovir given at the ED -Will continue IV Ceftriaxone 1000mg daily. -IV fluids -ID consult. #Hyperglycemia -Glu 360, acetone 1+, anion gap normal, urine glu 3+ -no known hx of DM -Insulin sliding scale implemented -BGM ACHS #Microcytic anemia -may be due to chronic hx of heavy menses -H/H 5.3/18.6 -2 units pRBC ordered at the ED -Will order iron studies, retic count -Transvaginal ultrasound #Elevated blood pressure -no known hx of HTN -will monitor BP for now #FEN -IV NS @100cc/hr -Electrolytes wnl, routine bmp monitoring -Diabetic diet #Prophylaxis -Lovenox 40mg sq daily #Disposition -full code -admit to med-surg Visit type - Emergency Visit Emergency Visit: Yes ED Registration Date: 09/03/18 Care time: The patient presented to the Emergency Department on the above date and was hospitalized for further evaluation of their emergent condition. - New Patient This patient is new to me today: Yes Date on this admission: 09/03/18 - Critical Care Critical Care patient: No
[2018-09-03] MEDS ORDERED: INSULIN (NOVOLOG) ASPART 100 UNITS/ML 10ML VIAL ONE ×2 (05:15→11:47)
[2018-09-03] MEDS: SODIUM CHLORIDE 1,000 ML IV SCH ×2 (05:53→22:31)
[2018-09-03] MEDS: INSULIN SLIDING SCALE (NOVOLOG) 1 VIAL SQ SCH ×4 (06:15→22:16)
[2018-09-03 06:54] LABS: EOS % 0.5 % (0-4.5); HEMATOCRIT 19.5 % (32.4-45.2); LYMPH % 24.2 % (8-40); MCH 20.2 pg (25.7-33.7); MCHC 29.7 g/dl (32.0-36.0); MEAN PLT VOLUME 7.7 fl (7.5-11.1); MONO % 7.5 % (3.8-10.2); NEUT % 66.8 % (42.8-82.8); PLATELET COUNT 427 K/MM3 (134-434); RBC 2.87 M/mm3 (3.60-5.2); RDW 24.2 % (11.6-15.6); WHITE BLOOD COUNT 12.3 K/mm3 (4.0-10.0)
[2018-09-03 07:26] LABS: ALBUMIN 3.1 g/dl (3.4-5.0); ALK PHOS 62 U/L (45-117); ANION GAP 6 MMOL/L (8-16); BILIRUBIN,TOTAL 0.8 mg/dL (0.2-1); BLOOD UREA NITROGEN 8 mg/dL (7-18); CHLORIDE 108 mmol/L (98-107); CHOLESTEROL 103 mg/dL (50-200); CO2 26 mmol/L (21-32); CREATININE 0.5 mg/dL (0.55-1.3); GLUCOSE,RANDOM 275 mg/dL (74-106); HDL CHOLESTEROL 31 mg/dL (40-60); MAGNESIUM 2.5 mg/dL (1.8-2.4); PHOSPHOROUS 3.2 mg/dL (2.5-4.9); POTASSIUM 3.6 mmol/L (3.5-5.1); SGOT/AST 6 U/L (15-37); SGPT/ALT 10 U/L (13-61); SODIUM 140 mmol/L (136-145); TOT PROT 6.5 g/dl (6.4-8.2); TRIGLYCERIDES 164 mg/dL (0-150)
[2018-09-03 08:09] LABS: HEMOGLOBIN 5.8 GM/dL (10.7-15.3)
[2018-09-03] MEDS ORDERED: DEXTROSE 5%-WATER - 50 ML IVPB ONE (09:42)
[2018-09-03] MEDS ORDERED: cefTRIAXone SODIUM 1 GM VIAL ONE (09:42)
--- NOTE | 2018-09-03 09:44 | CONSULT ---
Consult - text type - Consultation Consultation Note: Neurology CHIEF COMPLAINT:altered mental status HISTORY OF PRESENT ILLNESS: 33 year old female with no significant past medical history, BIBEMS due to altered mental status for 1 day. Patient provided limited history, unable to recall anything that had happened recently, or the last time she was well. Patient would answer yes or no to questions in ER per notes, and could not answer in sentences. Most of the history is from the , reporting that he found the patient clicking on the mouse on a computer that was turned off and was not responding to him. He called EMS, and blood sugar was noted to be >400. She denied fever, chills, headache, dizziness, neck pain, changes in vision, nausea, vomiting, chest pain, SOB, palpitations, abdominal pain, diarrhea, urinary symptoms, numbness or tingling. Of note, her Hgb was 5.3, and Glu 360 , acetone 1+ in ER. Lumbar tap done, 0 Wbc. UA with 73 wbc, 1+LYNSEY, 3+glucose. This AM, is starting to speak, she knows she's at [facility] as well as Sep 03 but did not provide me the year. Is getting medically optimized, RBC being given at bedside. Recent Travel:denies PAST MEDICAL HISTORY:none PAST SURGICAL HISTORY:none Social History: Smoking:denies Alcohol:denies Drugs: denies Family History:unknown Allergies No Known Allergies Allergy (Verified 09/02/18 19:31) HOME MEDICATIONS: Home Medications Medication Instructions Recorded NK [No Known Home Medication] 09/02/18 REVIEW OF SYSTEMS CONSTITUTIONAL: Absent: fever, chills, diaphoresis, generalized weakness, malaise, loss of appetite, weight change HEENT: Absent: rhinorrhea, nasal congestion, throat pain, throat swelling, difficulty swallowing, mouth swelling, ear pain, eye pain, visual changes CARDIOVASCULAR: Absent: chest pain, syncope, palpitations, irregular heart rate, lightheadedness , peripheral edema RESPIRATORY: Absent: cough, shortness of breath, dyspnea with exertion, orthopnea, wheezing, stridor, hemoptysis GASTROINTESTINAL: Absent: abdominal pain, abdominal distension, nausea, vomiting, diarrhea, constipation, melena, hematochezia GENITOURINARY: Absent: dysuria, frequency, urgency, hesitancy, hematuria, flank pain, genital pain MUSCULOSKELETAL: Absent: myalgia, arthralgia, joint swelling, back pain, neck pain SKIN: Absent: rash, itching, pallor HEMATOLOGIC/IMMUNOLOGIC: Absent: easy bleeding, easy bruising, lymphadenopathy, frequent infections ENDOCRINE: Absent: unexplained weight gain, unexplained weight loss, heat intolerance, cold intolerance NEUROLOGIC: Absent: headache, focal weakness or paresthesias, dizziness, unsteady gait, seizure, mental status changes, bladder or bowel incontinence PSYCHIATRIC: Absent: anxiety, depression, suicidal or homicidal ideation, hallucinations. PHYSICAL EXAMINATION Vital Signs Period Temp Pulse Resp BP Sys/Floyd Pulse Ox Last 24 Hr 98.1 F-100.5 F 93-119 18-20 142-174/50-92 95-100 GENERAL: Awake and alert, orientedx3, in no acute distress. HEAD: Normal with no signs of trauma. EYES: PERRLA, EOMI, sclera anicteric, pale palpebral conjunctivae. EARS, NOSE, THROAT: Ears normal, oropharynx clear without exudates. Moist mucous membranes. NECK: Normal range of motion, supple without lymphadenopathy, JVD, or masses. LUNGS: Breath sounds equal, clear to auscultation bilaterally. HEART: Tachycardic, +holosystolic murmur at LUSB ABDOMEN: Soft, nontender, not distended, normoactive bowel sounds. MUSCULOSKELETAL: Normal range of motion at all joints. No bony deformities or tenderness. No CVA tenderness. UPPER EXTREMITIES: 2+ pulses, warm, well-perfused. No peripheral edema. LOWER EXTREMITIES: 2+ pulses, warm, well-perfused. No peripheral edema. NEUROLOGICAL: AAOx3. Cranial nerves II-XII intact. Normal speech. Motor strength 5/5, Sensation intact. PSYCHIATRIC: Cooperative. Good eye contact. SKIN: Warm, dry, normal turgor, no rashes or lesions noted, normal capillary refill. CBCD WBC 12.3 K/mm3 (4.0-10.0) H 09/03/18 05:45 RBC 2.87 M/mm3 (3.60-5.2) L 09/03/18 05:45 Hgb 5.8 GM/dL (10.7-15.3) L* 09/03/18 05:45 Hct 19.5 % (32.4-45.2) L 09/03/18 05:45 MCV 68.0 fl (80-96) L 09/03/18 05:45 MCHC 29.7 g/dl (32.0-36.0) L 09/03/18 05:45 RDW 24.2 % (11.6-15.6) H 09/03/18 05:45 Plt Count 427 K/MM3 (134-434) 09/03/18 05:45 MPV 7.7 fl (7.5-11.1) 09/03/18 05:45 CMP Sodium 140 mmol/L (136-145) 09/03/18 05:45 Potassium 3.6 mmol/L (3.5-5.1) 09/03/18 05:45 Chloride 108 mmol/L (98-107) H 09/03/18 05:45 Carbon Dioxide 26 mmol/L (21-32) 09/03/18 05:45 Anion Gap 6 MMOL/L (8-16) L 09/03/18 05:45 BUN 8 mg/dL (7-18) 09/03/18 05:45 Creatinine 0.5 mg/dL (0.55-1.3) L 09/03/18 05:45 Creat Clearance w eGFR > 60 (>60) 09/03/18 05:45 Random Glucose 275 mg/dL (74-106) H 09/03/18 05:45 Calcium 8.0 mg/dL (8.5-10.1) L 09/03/18 05:45 Total Bilirubin 0.8 mg/dL (0.2-1) 09/03/18 05:45 AST 6 U/L (15-37) L 09/03/18 05:45 ALT 10 U/L (13-61) L 09/03/18 05:45 Alkaline Phosphatase 62 U/L (45-117) 09/03/18 05:45 Total Protein 6.5 g/dl (6.4-8.2) 09/03/18 05:45 Albumin 3.1 g/dl (3.4-5.0) L 09/03/18 05:45 CARDIAC ENZYMES Creatine Kinase 61 U/L (26-192) 09/02/18 21:12 Troponin I 0.02 ng/ml (0.00-0.05) 09/02/18 21:12 ASSESSMENT/PLAN: 33 year old female with no significant past medical history, BIBEMS due to altered mental status for 1 day. Patient provided limited history, unable to recall anything that had happened recently, or the last time she was well. Patient would answer yes or no to questions in ER per notes, and could not answer in sentences. Most of the history is from the , reporting that he found the patient clicking on the mouse on a computer that was turned off and was not responding to him. He called EMS, and blood sugar was noted to be >400. She denied fever, chills, headache, dizziness, neck pain, changes in vision, nausea, vomiting, chest pain, SOB, palpitations, abdominal pain, diarrhea, urinary symptoms, numbness or tingling. Of note, her Hgb was 5.3, and Glu 360 , acetone 1+ in ER. Lumbar tap done, 0 Wbc. UA with 73 wbc, 1+LYNSEY, 3+glucose. This AM, is starting to speak, she knows she's at [facility] as well as Sep 03 but did not provide me the year. Is getting medically optimized, RBC being given at bedside. AMS likely multifactorial, sepsis from UTI vs hyperglycemia vs anemia. CT head without acute changes. Agree with blood transfusion, continue treatment for UTI, abx as per primary/ID. Optimize hyperglycemia, increased hydration. DVT ppx.
[2018-09-03] MEDS ORDERED: ENOXAPARIN NA (PORCINE) 40 MG/0.4 ML DISP.SYRIN SQ SCH (10:00)
[2018-09-03] MEDS ORDERED: CEFTRIAXONE 1 GM in DEXTROSE 5%-WATER - 50 ML IVPB SCH (10:00)
--- NOTE | 2018-09-03 11:56 | PN ---
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9 - TYPE 2 DIABETES MELLITUS WITHOUT COMPLICATIONS (4) UTI (urinary tract infection) Code(s): N39.0 - URINARY TRACT INFECTION, SITE NOT SPECIFIED
--- NOTE | 2018-09-03 12:56 | PN ---
Problem List - Problems (1) Altered mental status Code(s): R41.82 - ALTERED MENTAL STATUS, UNSPECIFIED (2) Anemia Code(s): D64.9 - ANEMIA, UNSPECIFIED (3) Diabetes mellitus Code(s): E11.9 - TYPE 2 DIABETES MELLITUS WITHOUT COMPLICATIONS (4) UTI (urinary tract infection) Code(s): N39.0 - URINARY TRACT INFECTION, SITE NOT SPECIFIED
--- NOTE | 2018-09-03 12:59 | EKG ---
Test Reason : Blood Pressure : / mmHG Vent. Rate : 110 BPM Atrial Rate : 110 BPM P-R Int : 136 ms QRS Dur : 092 ms QT Int : 384 ms P-R-T Axes : 050 078 046 degrees QTc Int : 519 ms SINUS TACHYCARDIA NONSPECIFIC ST ABNORMALITY ABNORMAL ECG NO PREVIOUS ECGS AVAILABLE Confirmed by DUTCH PALOMO, REINALDO ([id number]) on 09/03/2018 12:58:37 PM Referred By: Confirmed By:REINALDO JUDD MD
--- NOTE | 2018-09-03 14:53 | PN ---
Physical Exam: SUBJECTIVE: Patient seen and examined at bedside. no acute events since admission. denies fevers, chills, n/v/d, cp ,sob, urinary sxs. flat affect, follows commands but will answer only 2-3 word answers to questions. denies SI , HI. OBJECTIVE: Vital Signs Period Temp Pulse Resp BP Sys/Floyd Pulse Ox Last 24 Hr 98.1 F-100.5 F 82-119 18-20 142-174/50-92 95-100 GENERAL: AOX3 NAD. flat affect HEAD: NCAT EYES: PERRLA, EOMI, sclera anicteric, pale palpebral conjunctivae. EARS, NOSE, THROAT: Ears normal, oropharynx clear without exudates.MMM NECK: Normal range of motion, supple without lymphadenopathy, JVD, or masses. LUNGS: CTAB HEART: RRR S1 S2, no m/r/g ABDOMEN: Soft, NTND, normoactive bowel sounds. MUSCULOSKELETAL: Normal range of motion at all joints. No bony deformities or tenderness. UPPER EXTREMITIES: 2+ pulses, warm, well-perfused. No peripheral edema. LOWER EXTREMITIES: 2+ pulses, warm, well-perfused. No peripheral edema. NEUROLOGICAL: AAOx3. Cranial nerves II-XII intact. Normal speech. Motor strength 5/5, Sensation intact. follows commands but will answer only 2-3 word answers to questions PSYCHIATRIC: Cooperative. Good eye contact. flat affect SKIN: Warm, dry, normal turgor, no rashes or lesions noted, normal capillary refill. Laboratory Results - last 24 hr 09/02/18 09/02/18 09/02/18 19:15 19:30 19:41 WBC RBC Hgb Hct MCV MCH MCHC RDW Plt Count MPV Absolute Neuts (auto) Neutrophils % Neutrophils % (Manual) Band Neutrophils % Lymphocytes % Lymphocytes % (Manual) Monocytes % Monocytes % (Manual) Eosinophils % Eosinophils % (Manual) Basophils % Basophils % (Manual) Myelocytes % (Man) Nucleated RBC % Hypochromia Platelet Estimate Poikilocytosis Anisocytosis Tear Drop Cells Retic Count PT with INR 14.20 H INR 1.20 H VBG pH POC VBG pCO2 POC VBG pO2 Mixed VBG HCO3 Sodium Potassium Chloride Carbon Dioxide Anion Gap BUN Creatinine Creat Clearance w eGFR POC Glucometer 360 Random Glucose Hemoglobin A1c % Serum Osmolality Lactic Acid Calcium Phosphorus Magnesium Ferritin Total Bilirubin AST ALT Alkaline Phosphatase Creatine Kinase Troponin I Total Protein Albumin Triglycerides Cholesterol Total LDL Cholesterol HDL Cholesterol Vitamin B12 TSH Serum , Qual Urine Color Urine Appearance Urine pH Ur Specific Melissa Urine Protein Urine Glucose (UA) Urine Ketones Urine Blood Urine Nitrite Urine Bilirubin Urine Urobilinogen Ur Leukocyte Esterase Urine WBC (Auto) Urine RBC (Auto) Ur Epithelial Cells Urine Mucus CSF Appearance CSF Color CSF WBC CSF RBC CSF Neutrophils CSF Lymphocytes CSF Eosinophils CSF Basophils CSF Macrophages CSF Plasma Cells CSF Diff Comment CSF Comment CSF Glucose CSF Total Protein Stool Occult Blood Salicylates Opiates Screen Methadone Screen Acetaminophen Barbiturate Screen Phencyclidine Screen Ur Amphetamines Screen MDMA (Ecstasy) Screen Benzodiazepines Screen Cocaine Screen U Marijuana (THC) Screen Acetone, Qual Influenza A (Rapid) Influenza B (Rapid) Anti-A Titer Blood Type O POSITIVE Antibody Screen Crossmatch 09/02/18 09/02/18 09/02/18 19:41 19:41 19:41 WBC RBC Hgb Hct MCV MCH MCHC RDW Plt Count MPV Absolute Neuts (auto) Neutrophils % Neutrophils % (Manual) Band Neutrophils % Lymphocytes % Lymphocytes % (Manual) Monocytes % Monocytes % (Manual) Eosinophils % Eosinophils % (Manual) Basophils % Basophils % (Manual) Myelocytes % (Man) Nucleated RBC % Hypochromia Platelet Estimate Poikilocytosis Anisocytosis Tear Drop Cells Retic Count PT with INR INR VBG pH POC VBG pCO2 POC VBG pO2 Mixed VBG HCO3 Sodium Potassium Chloride Carbon Dioxide Anion Gap BUN Creatinine Creat Clearance w eGFR POC Glucometer Random Glucose Hemoglobin A1c % Serum Osmolality Lactic Acid Calcium Phosphorus Magnesium Ferritin Total Bilirubin AST ALT Alkaline Phosphatase Creatine Kinase Troponin I Total Protein Albumin Triglycerides Cholesterol Total LDL Cholesterol HDL Cholesterol Vitamin B12 TSH Serum , Qual Negative Urine Color Ltyellow Urine Appearance Slcloudy Urine pH 6.0 Ur Specific Melissa 1.025 Urine Protein 1+ H Urine Glucose (UA) 3+ H Urine Ketones 2+ H Urine Blood 1+ H Urine Nitrite Negative Urine Bilirubin Negative Urine Urobilinogen Negative Ur Leukocyte Esterase 1+ H Urine WBC (Auto) 73 Urine RBC (Auto) 7 Ur Epithelial Cells Rare Urine Mucus Rare CSF Appearance CSF Color CSF WBC CSF RBC CSF Neutrophils CSF Lymphocytes CSF Eosinophils CSF Basophils CSF Macrophages CSF Plasma Cells CSF Diff Comment CSF Comment CSF Glucose CSF Total Protein Stool Occult Blood Salicylates Opiates Screen Methadone Screen Acetaminophen Barbiturate Screen Phencyclidine Screen Ur Amphetamines Screen MDMA (Ecstasy) Screen Benzodiazepines Screen Cocaine Screen U Marijuana (THC) Screen Acetone, Qual Influenza A (Rapid) Influenza B (Rapid) Anti-A Titer Cancelled Blood Type Cancelled Antibody Screen Cancelled Crossmatch 09/02/18 09/02/18 09/02/18 19:41 19:56 19:56 WBC 12.5 H RBC 2.89 L Hgb 5.3 L* Hct 18.6 L MCV 64.5 L MCH 18.2 L MCHC 28.2 L RDW 21.4 H Plt Count 487 H MPV 7.4 L Absolute Neuts (auto) 9.7 H Neutrophils % 77.8 Neutrophils % (Manual) 84.0 H Band Neutrophils % 0.0 Lymphocytes % 14.3 Lymphocytes % (Manual) 10.0 Monocytes % 6.4 Monocytes % (Manual) 4 Eosinophils % 0.2 Eosinophils % (Manual) 1.0 Basophils % 1.3 Basophils % (Manual) 0.0 Myelocytes % (Man) 1 Nucleated RBC % 0 Hypochromia 3+ Platelet Estimate Adequate Poikilocytosis 1+ Anisocytosis 2+ Tear Drop Cells Few Retic Count PT with INR INR VBG pH POC VBG pCO2 POC VBG pO2 Mixed VBG HCO3 Sodium 137 Potassium 3.6 Chloride 104 Carbon Dioxide 26 Anion Gap 8 BUN 11 Creatinine 0.7 Creat Clearance w eGFR > 60 POC Glucometer Random Glucose 360 H* Hemoglobin A1c % Serum Osmolality Lactic Acid Calcium 7.9 L Phosphorus Magnesium Ferritin Total Bilirubin 0.6 AST 9 L ALT 12 L Alkaline Phosphatase 68 Creatine Kinase Troponin I Total Protein 7.4 Albumin 3.6 Triglycerides Cholesterol Total LDL Cholesterol HDL Cholesterol Vitamin B12 TSH 1.87 Serum , Qual Urine Color Urine Appearance Urine pH Ur Specific Melissa Urine Protein Urine Glucose (UA) Urine Ketones Urine Blood Urine Nitrite Urine Bilirubin Urine Urobilinogen Ur Leukocyte Esterase Urine WBC (Auto) Urine RBC (Auto) Ur Epithelial Cells Urine Mucus CSF Appearance CSF Color CSF WBC CSF RBC CSF Neutrophils CSF Lymphocytes CSF Eosinophils CSF Basophils CSF Macrophages CSF Plasma Cells CSF Diff Comment CSF Comment CSF Glucose CSF Total Protein Stool Occult Blood Salicylates Opiates Screen Negative Methadone Screen Negative Acetaminophen Barbiturate Screen Negative Phencyclidine Screen Negative Ur Amphetamines Screen Negative MDMA (Ecstasy) Screen Negative Benzodiazepines Screen Negative Cocaine Screen Negative U Marijuana (THC) Screen Negative Acetone, Qual Positive small 1+ H Influenza A (Rapid) Influenza B (Rapid) Anti-A Titer Blood Type Antibody Screen Crossmatch 09/02/18 09/02/18 09/02/18 20:30 20:30 20:30 WBC RBC Hgb Hct MCV MCH MCHC RDW Plt Count MPV Absolute Neuts (auto) Neutrophils % Neutrophils % (Manual) Band Neutrophils % Lymphocytes % Lymphocytes % (Manual) Monocytes % Monocytes % (Manual) Eosinophils % Eosinophils % (Manual) Basophils % Basophils % (Manual) Myelocytes % (Man) Nucleated RBC % Hypochromia Platelet Estimate Poikilocytosis Anisocytosis Tear Drop Cells Retic Count PT with INR INR VBG pH 7.38 POC VBG pCO2 43.0 POC VBG pO2 37.0 Mixed VBG HCO3 24.5 Sodium Potassium Chloride Carbon Dioxide Anion Gap BUN Creatinine Creat Clearance w eGFR POC Glucometer Random Glucose Hemoglobin A1c % Serum Osmolality Lactic Acid 1.7 Calcium Phosphorus Magnesium Ferritin Total Bilirubin AST ALT Alkaline Phosphatase Creatine Kinase Troponin I Total Protein Albumin Triglycerides Cholesterol Total LDL Cholesterol HDL Cholesterol Vitamin B12 TSH Serum , Qual Urine Color Urine Appearance Urine pH Ur Specific Melissa Urine Protein Urine Glucose (UA) Urine Ketones Urine Blood Urine Nitrite Urine Bilirubin Urine Urobilinogen Ur Leukocyte Esterase Urine WBC (Auto) Urine RBC (Auto) Ur Epithelial Cells Urine Mucus CSF Appearance CSF Color CSF WBC CSF RBC CSF Neutrophils CSF Lymphocytes CSF Eosinophils CSF Basophils CSF Macrophages CSF Plasma Cells CSF Diff Comment CSF Comment CSF Glucose CSF Total Protein Stool Occult Blood Salicylates Opiates Screen Methadone Screen Acetaminophen Barbiturate Screen Phencyclidine Screen Ur Amphetamines Screen MDMA (Ecstasy) Screen Benzodiazepines Screen Cocaine Screen U Marijuana (THC) Screen Acetone, Qual Influenza A (Rapid) Influenza B (Rapid) Anti-A Titer Blood Type O POSITIVE Antibody Screen Negative Crossmatch See Detail 09/02/18 09/02/18 09/02/18 21:00 21:09 21:12 WBC RBC Hgb Hct MCV MCH MCHC RDW Plt Count MPV Absolute Neuts (auto) Neutrophils % Neutrophils % (Manual) Band Neutrophils % Lymphocytes % Lymphocytes % (Manual) Monocytes % Monocytes % (Manual) Eosinophils % Eosinophils % (Manual) Basophils % Basophils % (Manual) Myelocytes % (Man) Nucleated RBC % Hypochromia Platelet Estimate Poikilocytosis Anisocytosis Tear Drop Cells Retic Count PT with INR INR VBG pH POC VBG pCO2 POC VBG pO2 Mixed VBG HCO3 Sodium Potassium Chloride Carbon Dioxide Anion Gap BUN Creatinine Creat Clearance w eGFR POC Glucometer Random Glucose Hemoglobin A1c % Serum Osmolality Lactic Acid Calcium Phosphorus Magnesium Ferritin Total Bilirubin AST ALT Alkaline Phosphatase Creatine Kinase Troponin I Total Protein Albumin Triglycerides Cholesterol Total LDL Cholesterol HDL Cholesterol Vitamin B12 TSH Serum , Qual Urine Color Urine Appearance Urine pH Ur Specific Melissa Urine Protein Urine Glucose (UA) Urine Ketones Urine Blood Urine Nitrite Urine Bilirubin Urine Urobilinogen Ur Leukocyte Esterase Urine WBC (Auto) Urine RBC (Auto) Ur Epithelial Cells Urine Mucus CSF Appearance CSF Color CSF WBC CSF RBC CSF Neutrophils CSF Lymphocytes CSF Eosinophils CSF Basophils CSF Macrophages CSF Plasma Cells CSF Diff Comment CSF Comment CSF Glucose CSF Total Protein Stool Occult Blood Negative Salicylates < 1.7 L Opiates Screen Methadone Screen Acetaminophen < 2.00 L Barbiturate Screen Phencyclidine Screen Ur Amphetamines Screen MDMA (Ecstasy) Screen Benzodiazepines Screen Cocaine Screen U Marijuana (THC) Screen Acetone, Qual Influenza A (Rapid) Negative Influenza B (Rapid) Negative Anti-A Titer Blood Type Antibody Screen Crossmatch 09/02/18 09/02/18 09/03/18 21:12 23:33 00:31 WBC RBC Hgb Hct MCV MCH MCHC RDW Plt Count MPV Absolute Neuts (auto) Neutrophils % Neutrophils % (Manual) Band Neutrophils % Lymphocytes % Lymphocytes % (Manual) Monocytes % Monocytes % (Manual) Eosinophils % Eosinophils % (Manual) Basophils % Basophils % (Manual) Myelocytes % (Man) Nucleated RBC % Hypochromia Platelet Estimate Poikilocytosis Anisocytosis Tear Drop Cells Retic Count PT with INR INR VBG pH POC VBG pCO2 POC VBG pO2 Mixed VBG HCO3 Sodium Potassium Chloride Carbon Dioxide Anion Gap BUN Creatinine Creat Clearance w eGFR POC Glucometer Random Glucose Hemoglobin A1c % Serum Osmolality Lactic Acid 1.1 Calcium Phosphorus Magnesium Ferritin Total Bilirubin AST ALT Alkaline Phosphatase Creatine Kinase 61 Troponin I 0.02 Total Protein Albumin Triglycerides Cholesterol Total LDL Cholesterol HDL Cholesterol Vitamin B12 TSH Serum , Qual Urine Color Urine Appearance Urine pH Ur Specific Melissa Urine Protein Urine Glucose (UA) Urine Ketones Urine Blood Urine Nitrite Urine Bilirubin Urine Urobilinogen Ur Leukocyte Esterase Urine WBC (Auto) Urine RBC (Auto) Ur Epithelial Cells Urine Mucus CSF Appearance Clear CSF Color Colorless CSF WBC 0 CSF RBC 1 CSF Neutrophils No Result Required. CSF Lymphocytes No Result Required. CSF Eosinophils No Result Required. CSF Basophils No Result Required. CSF Macrophages No Result Required. CSF Plasma Cells No Result Required. CSF Diff Comment No Result Required. CSF Comment No Result Required. CSF Glucose 152 H CSF Total Protein 26 Stool Occult Blood Salicylates Opiates Screen Methadone Screen Acetaminophen Barbiturate Screen Phencyclidine Screen Ur Amphetamines Screen MDMA (Ecstasy) Screen Benzodiazepines Screen Cocaine Screen U Marijuana (THC) Screen Acetone, Qual Influenza A (Rapid) Influenza B (Rapid) Anti-A Titer Blood Type Antibody Screen Crossmatch 09/03/18 09/03/18 09/03/18 05:45 05:45 05:45 WBC 12.3 H RBC 2.87 L Hgb 5.8 L* Hct 19.5 L MCV 68.0 L MCH 20.2 L D MCHC 29.7 L RDW 24.2 H Plt Count 427 MPV 7.7 Absolute Neuts (auto) 8.2 H Neutrophils % 66.8 Neutrophils % (Manual) Band Neutrophils % Lymphocytes % 24.2 D Lymphocytes % (Manual) Monocytes % 7.5 Monocytes % (Manual) Eosinophils % 0.5 D Eosinophils % (Manual) Basophils % 1.0 Basophils % (Manual) Myelocytes % (Man) Nucleated RBC % 0 Hypochromia Platelet Estimate Poikilocytosis Anisocytosis Tear Drop Cells Retic Count PT with INR INR VBG pH POC VBG pCO2 POC VBG pO2 Mixed VBG HCO3 Sodium 140 Potassium 3.6 Chloride 108 H Carbon Dioxide 26 Anion Gap 6 L BUN 8 Creatinine 0.5 L Creat Clearance w eGFR > 60 POC Glucometer Random Glucose 275 H Hemoglobin A1c % 9.4 H Serum Osmolality Lactic Acid Calcium 8.0 L Phosphorus 3.2 Magnesium 2.5 H Ferritin Total Bilirubin 0.8 AST 6 L ALT 10 L Alkaline Phosphatase 62 Creatine Kinase Troponin I Total Protein 6.5 Albumin 3.1 L Triglycerides 164 H Cholesterol 103 Total LDL Cholesterol 60 HDL Cholesterol 31 L Vitamin B12 TSH Serum , Qual Urine Color Urine Appearance Urine pH Ur Specific Melissa Urine Protein Urine Glucose (UA) Urine Ketones Urine Blood Urine Nitrite Urine Bilirubin Urine Urobilinogen Ur Leukocyte Esterase Urine WBC (Auto) Urine RBC (Auto) Ur Epithelial Cells Urine Mucus CSF Appearance CSF Color CSF WBC CSF RBC CSF Neutrophils CSF Lymphocytes CSF Eosinophils CSF Basophils CSF Macrophages CSF Plasma Cells CSF Diff Comment CSF Comment CSF Glucose CSF Total Protein Stool Occult Blood Salicylates Opiates Screen Methadone Screen Acetaminophen Barbiturate Screen Phencyclidine Screen Ur Amphetamines Screen MDMA (Ecstasy) Screen Benzodiazepines Screen Cocaine Screen U Marijuana (THC) Screen Acetone, Qual Influenza A (Rapid) Influenza B (Rapid) Anti-A Titer Blood Type Antibody Screen Crossmatch 09/03/18 09/03/18 09/03/18 05:45 05:45 05:51 WBC RBC Hgb Hct MCV MCH MCHC RDW Plt Count MPV Absolute Neuts (auto) Neutrophils % Neutrophils % (Manual) Band Neutrophils % Lymphocytes % Lymphocytes % (Manual) Monocytes % Monocytes % (Manual) Eosinophils % Eosinophils % (Manual) Basophils % Basophils % (Manual) Myelocytes % (Man) Nucleated RBC % Hypochromia Platelet Estimate Poikilocytosis Anisocytosis Tear Drop Cells Retic Count 3.15 H PT with INR INR VBG pH POC VBG pCO2 POC VBG pO2 Mixed VBG HCO3 Sodium Potassium Chloride Carbon Dioxide Anion Gap BUN Creatinine Creat Clearance w eGFR POC Glucometer 299 Random Glucose Hemoglobin A1c % Serum Osmolality 293 Lactic Acid Calcium Phosphorus Magnesium Ferritin 2.7 L Total Bilirubin AST ALT Alkaline Phosphatase Creatine Kinase Troponin I Total Protein Albumin Triglycerides Cholesterol Total LDL Cholesterol HDL Cholesterol Vitamin B12 248 TSH Serum , Qual Urine Color Urine Appearance Urine pH Ur Specific Melissa Urine Protein Urine Glucose (UA) Urine Ketones Urine Blood Urine Nitrite Urine Bilirubin Urine Urobilinogen Ur Leukocyte Esterase Urine WBC (Auto) Urine RBC (Auto) Ur Epithelial Cells Urine Mucus CSF Appearance CSF Color CSF WBC CSF RBC CSF Neutrophils CSF Lymphocytes CSF Eosinophils CSF Basophils CSF Macrophages CSF Plasma Cells CSF Diff Comment CSF Comment CSF Glucose CSF Total Protein Stool Occult Blood Salicylates Opiates Screen Methadone Screen Acetaminophen Barbiturate Screen Phencyclidine Screen Ur Amphetamines Screen MDMA (Ecstasy) Screen Benzodiazepines Screen Cocaine Screen U Marijuana (THC) Screen Acetone, Qual Influenza A (Rapid) Influenza B (Rapid) Anti-A Titer Blood Type Antibody Screen Crossmatch 09/03/18 11:51 WBC RBC Hgb Hct MCV MCH MCHC RDW Plt Count MPV Absolute Neuts (auto) Neutrophils % Neutrophils % (Manual) Band Neutrophils % Lymphocytes % Lymphocytes % (Manual) Monocytes % Monocytes % (Manual) Eosinophils % Eosinophils % (Manual) Basophils % Basophils % (Manual) Myelocytes % (Man) Nucleated RBC % Hypochromia Platelet Estimate Poikilocytosis Anisocytosis Tear Drop Cells Retic Count PT with INR INR VBG pH POC VBG pCO2 POC VBG pO2 Mixed VBG HCO3 Sodium Potassium Chloride Carbon Dioxide Anion Gap BUN Creatinine Creat Clearance w eGFR POC Glucometer 308 Random Glucose Hemoglobin A1c % Serum Osmolality Lactic Acid Calcium Phosphorus Magnesium Ferritin Total Bilirubin AST ALT Alkaline Phosphatase Creatine Kinase Troponin I Total Protein Albumin Triglycerides Cholesterol Total LDL Cholesterol HDL Cholesterol Vitamin B12 TSH Serum , Qual Urine Color Urine Appearance Urine pH Ur Specific Melissa Urine Protein Urine Glucose (UA) Urine Ketones Urine Blood Urine Nitrite Urine Bilirubin Urine Urobilinogen Ur Leukocyte Esterase Urine WBC (Auto) Urine RBC (Auto) Ur Epithelial Cells Urine Mucus CSF Appearance CSF Color CSF WBC CSF RBC CSF Neutrophils CSF Lymphocytes CSF Eosinophils CSF Basophils CSF Macrophages CSF Plasma Cells CSF Diff Comment CSF Comment CSF Glucose CSF Total Protein Stool Occult Blood Salicylates Opiates Screen Methadone Screen Acetaminophen Barbiturate Screen Phencyclidine Screen Ur Amphetamines Screen MDMA (Ecstasy) Screen Benzodiazepines Screen Cocaine Screen U Marijuana (THC) Screen Acetone, Qual Influenza A (Rapid) Influenza B (Rapid) Anti-A Titer Blood Type Antibody Screen Crossmatch Active Medications Generic Name Dose Route Start Last Admin Trade Name Freq PRN Reason Stop Dose Admin Sodium Chloride 1,000 mls @ 100 mls/hr 09/03/18 02:15 09/03/18 05:53 Normal Saline - IV Not Given ASDIR JUANITO Ceftriaxone Sodium 1 gm/ 50 mls @ 100 mls/hr 09/03/18 10:00 09/03/18 13:09 Dextrose IVPB 09/04/18 09:59 100 mls/hr DAILY JUANITO Administration Insulin Aspart 1 vial 09/03/18 07:00 09/03/18 11:53 Novolog Vial Sliding Scale - SQ 6 units ACHS JUANITO Administration Protocol ASSESSMENT/PLAN: 33 year old F with no significant past medical history, BIBEMS due to altered mental status for 1 day. #Acute toxic metabolic encephalopathy -AMS may be likely multifactorial -May be 2/2 Sepsis from UTI vs Hyperosmolar hyperglycemic state vs severe anemia vs elevated BP vs ?depression -Neurology consult. -Head CT negative of any acute intracranial pathology. - b12 nl -TSH nl, utox neg #Sepsis likely 2/2 UTI -lumbar tap done, CSF studies pending, CSF WBC 0 -UA: 73 WBC, 1+LE -Ceftriaxone, Vancomycin and Acyclovir given at the ED -Will continue IV Ceftriaxone 1000mg daily. -IV fluids -ID consult. -f/u ucx, bcx #newly dx DM - A1c 9.4 -Glu 360, acetone 1+, anion gap normal, urine glu 3+ -ISS -BGM ACHS -serum osm 293, unclear if was initially elevated as sample was collected after fluid resuscitation began so may have already corrected. -Levemir 20 U sq HS #Microcytic anemia -may be due to chronic hx of heavy menses -H/H 5.8 this AM -s/p 2 units pRBC. 3rd U running. rpt CBC 6pm -maintain H/H >7 and transfuse prn -f/u iron studies -retic count elevated -Transvaginal ultrasound -OBGYN consult #Elevated blood pressure - improving -no known hx of HTN -will monitor BP for now #FEN -IV NS @100cc/hr -Electrolytes wnl, routine bmp monitoring -Diabetic diet #Prophylaxis -scds #Disposition -full code -med-surg Visit type - Emergency Visit Emergency Visit: Yes ED Registration Date: 09/03/18 Care time: The patient presented to the Emergency Department on the above date and was hospitalized for further evaluation of their emergent condition. - New Patient This patient is new to me today: Yes Date on this admission: 09/03/18 - Critical Care Critical Care patient: No
--- NOTE | 2018-09-03 15:32 | CONS ---
DATE OF CONSULTATION: DATE OF DICTATION: 09/03/2018 INFECTIOUS DISEASE CONSULTATION REQUESTING GREEN PARTY: Hospitalist Service CONSULTING PHYSICIAN: Se Trejo M.D. HISTORY OF PRESENT ILLNESS: This is a 33-year-old woman. She was admitted yesterday with decreased energy and change in mental status. Her noted that since Thursday night she has been weaker than usual. Yesterday she was sitting in front of the computer. It was off, and she was clicking with her mouse. 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 He called EMS. Her sugar was over 400. The ER showed a hemoglobin of 5.3 with acetones. She had one low-grade temperature of 100.5 and she had a head CT and spinal TAP which was normal. She was given empiric dose of vancomycin, ceftriaxone, and acyclovir pending the LP results, and the antibiotics were subsequently stopped. She was noted to have pyuria, and she was continued on ceftriaxone. This morning, her reports she is about 90% better. She is alert. Her speech is much more fluent. She is able to tell me that she writes blogs and works from home. They have had no travel outside the country. She has had no blood in her stools. She has had no hematemesis. She has had very heavy menses. There is no cigarette use or substance use. They have a pet cat. She has not seen a doctor in a very long time and was last hospitalized about 7 years ago for a kidney infection. ALLERGIES: She has no known allergies. MEDICATION: She takes no medication. PAST MEDICAL HISTORY: Notable for the admission for a kidney infection 7 years ago. 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 They have been 11 years. She denies any HIV risk factors, and she declines testing. FAMILY HISTORY: Unremarkable. She is from [place]. She has no known drug allergies. She is on no medications. REVIEW OF SYSTEMS: There has been no nausea, vomiting, diarrhea, dysuria, hematuria, or blood in the stools. PHYSICAL EXAMINATION: GENERAL: She is awake and alert. VITAL SIGNS: Temperature is 98.6, pulse of 82, blood pressure 143/76, respiratory rate 18. HEENT: Normocephalic. Eyes are anicteric. She has no thrush. NECK: Supple. LUNGS: Clear to auscultation. HEART: Regular rate and rhythm. ABDOMEN: Soft, nontender. EXTREMITIES: Without edema. She has no nuchal rigidity. LABORATORY: White count is 12.3, hemoglobin of 5.8, platelets are 427, reticulocyte count is 8.1. Her BUN and creatinine are 8 and 0.5. LFTs are normal. Ferritin is 2.7. Her MCV is 64. Her urinalysis has 73 white cells. CSF had 0 white cell, 1 red cell, normal protein of 26, and a glucose of 152, with a serum glucose of 360. Urine toxicology screen was negative. Acetones were positive. Influenza screen was negative. Cultures are pending. Chest x-ray unremarkable. Head CT unremarkable as well. IMPRESSION: In summary, this is a 33-year-old woman admitted with change in mental status, severe anemia, new onset diabetes with hemoglobin A1c of greater than 9. I suspect that her altered mental status is multifactorial due to combination of anemia and diabetes. She has no evidence of central nervous system infection. Would continue Rocephin for UTI, which may also be contributing to her change in mental status. She is about 90% better at this time and getting a 2nd unit of blood. Would follow up cultures. Discussed the case at length with the and spouse. They decline HIV testing at this time. SE TREJO M.D. [id number]
--- NOTE | 2018-09-03 18:50 | PN ---
Teaching Attending Note Name of Resident: Efrem Mcneil ATTENDING PHYSICIAN STATEMENT I saw and evaluated the patient. I reviewed the resident's note and discussed the case with the resident. I agree with the resident's findings and plan as documented. SUBJECTIVE: Still confused. No complaints. Feels okay. Denies headache/visual disturbance/limb numbness or weakness. Unable to say why she came to hospital. Denies chest pain/palpitations/shortness of breath/lightheadedness. OBJECTIVE: Afebrile, Hemodynamically Stable. Last Vital Signs Temp Pulse Resp BP Pulse Ox 98.6 F 82 18 143/76 95 09/03/18 10:00 09/03/18 10:00 09/03/18 10:00 09/03/18 10:09/03/18 09:00 HEENT - Atraumatic, Normocephalic. Neuro - AAO x 2-3. BETH. EOMI. Tone/Power normal all 4 extremities. Heart - S1, S2, soft, SM Lungs - clear to auscultation, no crackles/wheeze. Abdomen - high BMI. Soft, non-tender. Bowel Sounds normal. Extremities - no edema, no calf tenderness Laboratory Results - last 24 hr 09/02/18 09/02/18 09/02/18 19:15 19:30 19:41 WBC RBC Hgb Hct MCV MCH MCHC RDW Plt Count MPV Absolute Neuts (auto) Neutrophils % Neutrophils % (Manual) Band Neutrophils % Lymphocytes % Lymphocytes % (Manual) Monocytes % Monocytes % (Manual) Eosinophils % Eosinophils % (Manual) Basophils % Basophils % (Manual) Myelocytes % (Man) Nucleated RBC % Hypochromia Platelet Estimate Poikilocytosis Anisocytosis Tear Drop Cells Retic Count PT with INR 14.20 H INR 1.20 H VBG pH POC VBG pCO2 POC VBG pO2 Mixed VBG HCO3 Sodium Potassium Chloride Carbon Dioxide Anion Gap BUN Creatinine Creat Clearance w eGFR POC Glucometer 360 Random Glucose Hemoglobin A1c % Serum Osmolality Lactic Acid Calcium Phosphorus Magnesium Ferritin Total Bilirubin AST ALT Alkaline Phosphatase Creatine Kinase Troponin I Total Protein Albumin Triglycerides Cholesterol Total LDL Cholesterol HDL Cholesterol Vitamin B12 TSH Serum , Qual Urine Color Urine Appearance Urine pH Ur Specific [place] Urine Protein Urine Glucose (UA) Urine Ketones Urine Blood Urine Nitrite Urine Bilirubin Urine Urobilinogen Ur Leukocyte Esterase Urine WBC (Auto) Urine RBC (Auto) Ur Epithelial Cells Urine Mucus CSF Appearance CSF Color CSF WBC CSF RBC CSF Neutrophils CSF Lymphocytes CSF Eosinophils CSF Basophils CSF Macrophages CSF Plasma Cells CSF Diff Comment CSF Comment CSF Glucose CSF Total Protein Stool Occult Blood Salicylates Opiates Screen Methadone Screen Acetaminophen Barbiturate Screen Phencyclidine Screen Ur Amphetamines Screen MDMA (Ecstasy) Screen Benzodiazepines Screen Cocaine Screen U Marijuana (THC) Screen Acetone, Qual Influenza A (Rapid) Influenza B (Rapid) Anti-A Titer Blood Type O POSITIVE Antibody Screen Crossmatch 09/02/18 09/02/18 09/02/18 19:41 19:41 19:41 WBC RBC Hgb Hct MCV MCH MCHC RDW Plt Count MPV Absolute Neuts (auto) Neutrophils % Neutrophils % (Manual) Band Neutrophils % Lymphocytes % Lymphocytes % (Manual) Monocytes % Monocytes % (Manual) Eosinophils % Eosinophils % (Manual) Basophils % Basophils % (Manual) Myelocytes % (Man) Nucleated RBC % Hypochromia Platelet Estimate Poikilocytosis Anisocytosis Tear Drop Cells Retic Count PT with INR INR VBG pH POC VBG pCO2 POC VBG pO2 Mixed VBG HCO3 Sodium Potassium Chloride Carbon Dioxide Anion Gap BUN Creatinine Creat Clearance w eGFR POC Glucometer Random Glucose Hemoglobin A1c % Serum Osmolality Lactic Acid Calcium Phosphorus Magnesium Ferritin Total Bilirubin AST ALT Alkaline Phosphatase Creatine Kinase Troponin I Total Protein Albumin Triglycerides Cholesterol Total LDL Cholesterol HDL Cholesterol Vitamin B12 TSH Serum , Qual Negative Urine Color Ltyellow Urine Appearance Slcloudy Urine pH 6.0 Ur Specific [place] 1.025 Urine Protein 1+ H Urine Glucose (UA) 3+ H Urine Ketones 2+ H Urine Blood 1+ H Urine Nitrite Negative Urine Bilirubin Negative Urine Urobilinogen Negative Ur Leukocyte Esterase 1+ H Urine WBC (Auto) 73 Urine RBC (Auto) 7 Ur Epithelial Cells Rare Urine Mucus Rare CSF Appearance CSF Color CSF WBC CSF RBC CSF Neutrophils CSF Lymphocytes CSF Eosinophils CSF Basophils CSF Macrophages CSF Plasma Cells CSF Diff Comment CSF Comment CSF Glucose CSF Total Protein Stool Occult Blood Salicylates Opiates Screen Methadone Screen Acetaminophen Barbiturate Screen Phencyclidine Screen Ur Amphetamines Screen MDMA (Ecstasy) Screen Benzodiazepines Screen Cocaine Screen U Marijuana (THC) Screen Acetone, Qual Influenza A (Rapid) Influenza B (Rapid) Anti-A Titer Cancelled Blood Type Cancelled Antibody Screen Cancelled Crossmatch 09/02/18 09/02/18 09/02/18 19:41 19:56 19:56 WBC 12.5 H RBC 2.89 L Hgb 5.3 L* Hct 18.6 L MCV 64.5 L MCH 18.2 L MCHC 28.2 L RDW 21.4 H Plt Count 487 H MPV 7.4 L Absolute Neuts (auto) 9.7 H Neutrophils % 77.8 Neutrophils % (Manual) 84.0 H Band Neutrophils % 0.0 Lymphocytes % 14.3 Lymphocytes % (Manual) 10.0 Monocytes % 6.4 Monocytes % (Manual) 4 Eosinophils % 0.2 Eosinophils % (Manual) 1.0 Basophils % 1.3 Basophils % (Manual) 0.0 Myelocytes % (Man) 1 Nucleated RBC % 0 Hypochromia 3+ Platelet Estimate Adequate Poikilocytosis 1+ Anisocytosis 2+ Tear Drop Cells Few Retic Count PT with INR INR VBG pH POC VBG pCO2 POC VBG pO2 Mixed VBG HCO3 Sodium 137 Potassium 3.6 Chloride 104 Carbon Dioxide 26 Anion Gap 8 BUN 11 Creatinine 0.7 Creat Clearance w eGFR > 60 POC Glucometer Random Glucose 360 H* Hemoglobin A1c % Serum Osmolality Lactic Acid Calcium 7.9 L Phosphorus Magnesium Ferritin Total Bilirubin 0.6 AST 9 L ALT 12 L Alkaline Phosphatase 68 Creatine Kinase Troponin I Total Protein 7.4 Albumin 3.6 Triglycerides Cholesterol Total LDL Cholesterol HDL Cholesterol Vitamin B12 TSH 1.87 Serum , Qual Urine Color Urine Appearance Urine pH Ur Specific [place] Urine Protein Urine Glucose (UA) Urine Ketones Urine Blood Urine Nitrite Urine Bilirubin Urine Urobilinogen Ur Leukocyte Esterase Urine WBC (Auto) Urine RBC (Auto) Ur Epithelial Cells Urine Mucus CSF Appearance CSF Color CSF WBC CSF RBC CSF Neutrophils CSF Lymphocytes CSF Eosinophils CSF Basophils CSF Macrophages CSF Plasma Cells CSF Diff Comment CSF Comment CSF Glucose CSF Total Protein Stool Occult Blood Salicylates Opiates Screen Negative Methadone Screen Negative Acetaminophen Barbiturate Screen Negative Phencyclidine Screen Negative Ur Amphetamines Screen Negative MDMA (Ecstasy) Screen Negative Benzodiazepines Screen Negative Cocaine Screen Negative U Marijuana (THC) Screen Negative Acetone, Qual Positive small 1+ H Influenza A (Rapid) Influenza B (Rapid) Anti-A Titer Blood Type Antibody Screen Crossmatch 09/02/18 09/02/18 09/02/18 20:30 20:30 20:30 WBC RBC Hgb Hct MCV MCH MCHC RDW Plt Count MPV Absolute Neuts (auto) Neutrophils % Neutrophils % (Manual) Band Neutrophils % Lymphocytes % Lymphocytes % (Manual) Monocytes % Monocytes % (Manual) Eosinophils % Eosinophils % (Manual) Basophils % Basophils % (Manual) Myelocytes % (Man) Nucleated RBC % Hypochromia Platelet Estimate Poikilocytosis Anisocytosis Tear Drop Cells Retic Count PT with INR INR VBG pH 7.38 POC VBG pCO2 43.0 POC VBG pO2 37.0 Mixed VBG HCO3 24.5 Sodium Potassium Chloride Carbon Dioxide Anion Gap BUN Creatinine Creat Clearance w eGFR POC Glucometer Random Glucose Hemoglobin A1c % Serum Osmolality Lactic Acid 1.7 Calcium Phosphorus Magnesium Ferritin Total Bilirubin AST ALT Alkaline Phosphatase Creatine Kinase Troponin I Total Protein Albumin Triglycerides Cholesterol Total LDL Cholesterol HDL Cholesterol Vitamin B12 TSH Serum , Qual Urine Color Urine Appearance Urine pH Ur Specific [place] Urine Protein Urine Glucose (UA) Urine Ketones Urine Blood Urine Nitrite Urine Bilirubin Urine Urobilinogen Ur Leukocyte Esterase Urine WBC (Auto) Urine RBC (Auto) Ur Epithelial Cells Urine Mucus CSF Appearance CSF Color CSF WBC CSF RBC CSF Neutrophils CSF Lymphocytes CSF Eosinophils CSF Basophils CSF Macrophages CSF Plasma Cells CSF Diff Comment CSF Comment CSF Glucose CSF Total Protein Stool Occult Blood Salicylates Opiates Screen Methadone Screen Acetaminophen Barbiturate Screen Phencyclidine Screen Ur Amphetamines Screen MDMA (Ecstasy) Screen Benzodiazepines Screen Cocaine Screen U Marijuana (THC) Screen Acetone, Qual Influenza A (Rapid) Influenza B (Rapid) Anti-A Titer Blood Type O POSITIVE Antibody Screen Negative Crossmatch See Detail 09/02/18 09/02/18 09/02/18 21:00 21:09 21:12 WBC RBC Hgb Hct MCV MCH MCHC RDW Plt Count MPV Absolute Neuts (auto) Neutrophils % Neutrophils % (Manual) Band Neutrophils % Lymphocytes % Lymphocytes % (Manual) Monocytes % Monocytes % (Manual) Eosinophils % Eosinophils % (Manual) Basophils % Basophils % (Manual) Myelocytes % (Man) Nucleated RBC % Hypochromia Platelet Estimate Poikilocytosis Anisocytosis Tear Drop Cells Retic Count PT with INR INR VBG pH POC VBG pCO2 POC VBG pO2 Mixed VBG HCO3 Sodium Potassium Chloride Carbon Dioxide Anion Gap BUN Creatinine Creat Clearance w eGFR POC Glucometer Random Glucose Hemoglobin A1c % Serum Osmolality Lactic Acid Calcium Phosphorus Magnesium Ferritin Total Bilirubin AST ALT Alkaline Phosphatase Creatine Kinase Troponin I Total Protein Albumin Triglycerides Cholesterol Total LDL Cholesterol HDL Cholesterol Vitamin B12 TSH Serum , Qual Urine Color Urine Appearance Urine pH Ur Specific [place] Urine Protein Urine Glucose (UA) Urine Ketones Urine Blood Urine Nitrite Urine Bilirubin Urine Urobilinogen Ur Leukocyte Esterase Urine WBC (Auto) Urine RBC (Auto) Ur Epithelial Cells Urine Mucus CSF Appearance CSF Color CSF WBC CSF RBC CSF Neutrophils CSF Lymphocytes CSF Eosinophils CSF Basophils CSF Macrophages CSF Plasma Cells CSF Diff Comment CSF Comment CSF Glucose CSF Total Protein Stool Occult Blood Negative Salicylates < 1.7 L Opiates Screen Methadone Screen Acetaminophen < 2.00 L Barbiturate Screen Phencyclidine Screen Ur Amphetamines Screen MDMA (Ecstasy) Screen Benzodiazepines Screen Cocaine Screen U Marijuana (THC) Screen Acetone, Qual Influenza A (Rapid) Negative Influenza B (Rapid) Negative Anti-A Titer Blood Type Antibody Screen Crossmatch 09/02/18 09/02/18 09/03/18 21:12 23:33 00:31 WBC RBC Hgb Hct MCV MCH MCHC RDW Plt Count MPV Absolute Neuts (auto) Neutrophils % Neutrophils % (Manual) Band Neutrophils % Lymphocytes % Lymphocytes % (Manual) Monocytes % Monocytes % (Manual) Eosinophils % Eosinophils % (Manual) Basophils % Basophils % (Manual) Myelocytes % (Man) Nucleated RBC % Hypochromia Platelet Estimate Poikilocytosis Anisocytosis Tear Drop Cells Retic Count PT with INR INR VBG pH POC VBG pCO2 POC VBG pO2 Mixed VBG HCO3 Sodium Potassium Chloride Carbon Dioxide Anion Gap BUN Creatinine Creat Clearance w eGFR POC Glucometer Random Glucose Hemoglobin A1c % Serum Osmolality Lactic Acid 1.1 Calcium Phosphorus Magnesium Ferritin Total Bilirubin AST ALT Alkaline Phosphatase Creatine Kinase 61 Troponin I 0.02 Total Protein Albumin Triglycerides Cholesterol Total LDL Cholesterol HDL Cholesterol Vitamin B12 TSH Serum , Qual Urine Color Urine Appearance Urine pH Ur Specific [place] Urine Protein Urine Glucose (UA) Urine Ketones Urine Blood Urine Nitrite Urine Bilirubin Urine Urobilinogen Ur Leukocyte Esterase Urine WBC (Auto) Urine RBC (Auto) Ur Epithelial Cells Urine Mucus CSF Appearance Clear CSF Color Colorless CSF WBC 0 CSF RBC 1 CSF Neutrophils No Result Required. CSF Lymphocytes No Result Required. CSF Eosinophils No Result Required. CSF Basophils No Result Required. CSF Macrophages No Result Required. CSF Plasma Cells No Result Required. CSF Diff Comment No Result Required. CSF Comment No Result Required. CSF Glucose 152 H CSF Total Protein 26 Stool Occult Blood Salicylates Opiates Screen Methadone Screen Acetaminophen Barbiturate Screen Phencyclidine Screen Ur Amphetamines Screen MDMA (Ecstasy) Screen Benzodiazepines Screen Cocaine Screen U Marijuana (THC) Screen Acetone, Qual Influenza A (Rapid) Influenza B (Rapid) Anti-A Titer Blood Type Antibody Screen Crossmatch 09/03/18 09/03/18 09/03/18 05:45 05:45 05:45 WBC 12.3 H RBC 2.87 L Hgb 5.8 L* Hct 19.5 L MCV 68.0 L MCH 20.2 L D MCHC 29.7 L RDW 24.2 H Plt Count 427 MPV 7.7 Absolute Neuts (auto) 8.2 H Neutrophils % 66.8 Neutrophils % (Manual) Band Neutrophils % Lymphocytes % 24.2 D Lymphocytes % (Manual) Monocytes % 7.5 Monocytes % (Manual) Eosinophils % 0.5 D Eosinophils % (Manual) Basophils % 1.0 Basophils % (Manual) Myelocytes % (Man) Nucleated RBC % 0 Hypochromia Platelet Estimate Poikilocytosis Anisocytosis Tear Drop Cells Retic Count PT with INR INR VBG pH POC VBG pCO2 POC VBG pO2 Mixed VBG HCO3 Sodium 140 Potassium 3.6 Chloride 108 H Carbon Dioxide 26 Anion Gap 6 L BUN 8 Creatinine 0.5 L Creat Clearance w eGFR > 60 POC Glucometer Random Glucose 275 H Hemoglobin A1c % 9.4 H Serum Osmolality Lactic Acid Calcium 8.0 L Phosphorus 3.2 Magnesium 2.5 H Ferritin Total Bilirubin 0.8 AST 6 L ALT 10 L Alkaline Phosphatase 62 Creatine Kinase Troponin I Total Protein 6.5 Albumin 3.1 L Triglycerides 164 H Cholesterol 103 Total LDL Cholesterol 60 HDL Cholesterol 31 L Vitamin B12 TSH Serum , Qual Urine Color Urine Appearance Urine pH Ur Specific [place] Urine Protein Urine Glucose (UA) Urine Ketones Urine Blood Urine Nitrite Urine Bilirubin Urine Urobilinogen Ur Leukocyte Esterase Urine WBC (Auto) Urine RBC (Auto) Ur Epithelial Cells Urine Mucus CSF Appearance CSF Color CSF WBC CSF RBC CSF Neutrophils CSF Lymphocytes CSF Eosinophils CSF Basophils CSF Macrophages CSF Plasma Cells CSF Diff Comment CSF Comment CSF Glucose CSF Total Protein Stool Occult Blood Salicylates Opiates Screen Methadone Screen Acetaminophen Barbiturate Screen Phencyclidine Screen Ur Amphetamines Screen MDMA (Ecstasy) Screen Benzodiazepines Screen Cocaine Screen U Marijuana (THC) Screen Acetone, Qual Influenza A (Rapid) Influenza B (Rapid) Anti-A Titer Blood Type Antibody Screen Crossmatch 09/03/18 09/03/18 09/03/18 05:45 05:45 05:51 WBC RBC Hgb Hct MCV MCH MCHC RDW Plt Count MPV Absolute Neuts (auto) Neutrophils % Neutrophils % (Manual) Band Neutrophils % Lymphocytes % Lymphocytes % (Manual) Monocytes % Monocytes % (Manual) Eosinophils % Eosinophils % (Manual) Basophils % Basophils % (Manual) Myelocytes % (Man) Nucleated RBC % Hypochromia Platelet Estimate Poikilocytosis Anisocytosis Tear Drop Cells Retic Count 3.15 H PT with INR INR VBG pH POC VBG pCO2 POC VBG pO2 Mixed VBG HCO3 Sodium Potassium Chloride Carbon Dioxide Anion Gap BUN Creatinine Creat Clearance w eGFR POC Glucometer 299 Random Glucose Hemoglobin A1c % Serum Osmolality 293 Lactic Acid Calcium Phosphorus Magnesium Ferritin 2.7 L Total Bilirubin AST ALT Alkaline Phosphatase Creatine Kinase Troponin I Total Protein Albumin Triglycerides Cholesterol Total LDL Cholesterol HDL Cholesterol Vitamin B12 248 TSH Serum , Qual Urine Color Urine Appearance Urine pH Ur Specific [place] Urine Protein Urine Glucose (UA) Urine Ketones Urine Blood Urine Nitrite Urine Bilirubin Urine Urobilinogen Ur Leukocyte Esterase Urine WBC (Auto) Urine RBC (Auto) Ur Epithelial Cells Urine Mucus CSF Appearance CSF Color CSF WBC CSF RBC CSF Neutrophils CSF Lymphocytes CSF Eosinophils CSF Basophils CSF Macrophages CSF Plasma Cells CSF Diff Comment CSF Comment CSF Glucose CSF Total Protein Stool Occult Blood Salicylates Opiates Screen Methadone Screen Acetaminophen Barbiturate Screen Phencyclidine Screen Ur Amphetamines Screen MDMA (Ecstasy) Screen Benzodiazepines Screen Cocaine Screen U Marijuana (THC) Screen Acetone, Qual Influenza A (Rapid) Influenza B (Rapid) Anti-A Titer Blood Type Antibody Screen Crossmatch Current Medications Generic Name Dose Route Start Last Admin Trade Name Freq PRN Reason Stop Dose Admin Sodium Chloride 1,000 mls @ 100 mls/hr 09/03/18 02:15 09/03/18 05:53 Normal Saline - IV Not Given ASDIR JUANITO Ceftriaxone Sodium 1 gm/ 50 mls @ 100 mls/hr 09/03/18 10:00 09/03/18 13:09 Dextrose IVPB 09/04/18 09:59 100 mls/hr DAILY JUANITO Administration Insulin Aspart 1 vial 09/03/18 07:00 09/03/18 18:04 Novolog Vial Sliding Scale - SQ 4 units ACHS JUANITO Administration Protocol Insulin Detemir 15 units 09/03/18 22:00 Levemir Vial SQ HS JUANITO ASSESSMENT AND PLAN: 33 year old female with no significant PMH, broought to ED for change in mental status. Patient is unable to recall events or to explain why she is in the hospital. She denies any drug use. reported that the patient was staring blankly at a computer that was switched off, clicking aimlessly. Found to have Severe hyperglycemia and Severe Anemia. Not known diabetic nor anemic. Patient does report heavy periods. 1. Acute Encephalopathy, likely metabolic, possibly sec to to infection Unclear precipitant ?Hyperglycemia. No serum osmolality measured at presentation CT Head - No acute intra-cranial findings Utox negative Septic work-up ongoing, CXR neg, CSF neg, started empirically on Ceftriaxone for possible UTI, awaiting Urine Cx. ID and Neuro consulted for further recommendations. 2. Hyperglycemia, newly diagnosed DM 2 A1C 9 Serum osmo normal after hydration. Initiated on Levemir and Novolog sliding scale 3. Chronic Blood Loss Anemia sec to Menorrhagia Microcytic H/H 5.8/19.5, MCV 68 Ferritin 2.7 Transfusion 3 units PRBCs ongoing Transvaginal US ordered Gynecology consulted. DVT Px - SCDs. Lovenox held due to blood loss anemia.
[2018-09-03 21:01] LABS: BASO % 0.6 % (0-2.0); EOS % 2.3 % (0-4.5); HEMATOCRIT 26.7 % (32.4-45.2); HEMOGLOBIN 8.4 GM/dL (10.7-15.3); LYMPH % 18.7 % (8-40); MCH 22.7 pg (25.7-33.7); MCHC 31.6 g/dl (32.0-36.0); MEAN CELL VOLUME 71.8 fl (80-96); MEAN PLT VOLUME 7.9 fl (7.5-11.1); MONO % 6.7 % (3.8-10.2); NEUT % 71.7 % (42.8-82.8); PLATELET COUNT 464 K/MM3 (134-434); RBC 3.71 M/mm3 (3.60-5.2); RDW 24.8 % (11.6-15.6); WHITE BLOOD COUNT 15.1 K/mm3 (4.0-10.0)
[2018-09-03] MEDS ORDERED: INSULIN (LEVEMIR) 100 UNITS/ML UNITS SQ SCH ×2 (22:00)
[2018-09-04 04:15] LABS: SERUM IRON SATURATION 6 % (15-55); TOTAL IRON BINDING CAPACITY 369 ug/dL (250-450); UIBC 347 ug/dL (131-425)
[2018-09-04] MEDS: SODIUM CHLORIDE 1,000 ML IV SCH (05:24)
[2018-09-04] MEDS: INSULIN SLIDING SCALE (NOVOLOG) 1 VIAL SQ SCH ×4 (06:14→21:40)
--- NOTE | 2018-09-04 08:18 | PN ---
Physical Exam: SUBJECTIVE: Patient seen and examined at bedside. No new complaints. Patient is able to say why she came here and articulate well her wishes. Mild delay in answering questions, but improved based off of previous progress notes OBJECTIVE: Vital Signs Period Temp Pulse Resp BP Sys/Floyd Pulse Ox Last 24 Hr 98.4 F-98.9 F 73-92 18-18 130-146/76-88 95-95 GENERAL: The patient is awake, alert, and fully oriented, in no acute distress. HEAD: Normal with no signs of trauma. EYES: PERRL, extraocular movements intact, sclera anicteric, conjunctiva clear. No ptosis. LUNGS: Breath sounds equal, clear to auscultation bilaterally, no wheezes, no crackles, no accessory muscle use. HEART: Regular rate and rhythm, S1, S2 without murmur, rub or gallop. ABDOMEN: Soft, nontender, nondistended, normoactive bowel sounds, no guarding, no rebound, no hepatosplenomegaly, no masses. EXTREMITIES: 2+ pulses, warm, well-perfused, no edema. NEUROLOGICAL: Cranial nerves II through X grossly intact. Normal speech, gait not observed. PSYCH: Normal mood, normal affect. SKIN: Warm, dry, normal turgor, no rashes or lesions noted Laboratory Results - last 24 hr 09/02/18 09/02/18 09/03/18 20:30 20:30 00:31 WBC RBC Hgb Hct MCV MCH MCHC RDW Plt Count MPV Absolute Neuts (auto) Neutrophils % Lymphocytes % Monocytes % Eosinophils % Basophils % Nucleated RBC % POC Glucometer Hemoglobin A1c % Serum Osmolality Lactic Acid 1.7 1.1 Iron TIBC Iron Saturation Ferritin Vitamin B12 Blood Type O POSITIVE Antibody Screen Negative Crossmatch See Detail 09/03/18 09/03/18 09/03/18 05:45 05:45 05:45 WBC RBC Hgb Hct MCV MCH MCHC RDW Plt Count MPV Absolute Neuts (auto) Neutrophils % Lymphocytes % Monocytes % Eosinophils % Basophils % Nucleated RBC % POC Glucometer Hemoglobin A1c % 9.4 H Serum Osmolality 293 Lactic Acid Iron 22 L TIBC 369 Iron Saturation 6 L Ferritin 2.7 L Vitamin B12 248 Blood Type Antibody Screen Crossmatch 09/03/18 09/03/18 09/03/18 11:51 18:03 20:30 WBC 15.1 H RBC 3.71 Hgb 8.4 L Hct 26.7 L D MCV 71.8 L MCH 22.7 L MCHC 31.6 L RDW 24.8 H Plt Count 464 H MPV 7.9 Absolute Neuts (auto) 10.9 H Neutrophils % 71.7 Lymphocytes % 18.7 D Monocytes % 6.7 Eosinophils % 2.3 D Basophils % 0.6 Nucleated RBC % 1 H POC Glucometer 308 286 Hemoglobin A1c % Serum Osmolality Lactic Acid Iron TIBC Iron Saturation Ferritin Vitamin B12 Blood Type Antibody Screen Crossmatch 09/03/18 09/04/18 22:15 06:12 WBC RBC Hgb Hct MCV MCH MCHC RDW Plt Count MPV Absolute Neuts (auto) Neutrophils % Lymphocytes % Monocytes % Eosinophils % Basophils % Nucleated RBC % POC Glucometer 288 193 Hemoglobin A1c % Serum Osmolality Lactic Acid Iron TIBC Iron Saturation Ferritin Vitamin B12 Blood Type Antibody Screen Crossmatch Active Medications Generic Name Dose Route Start Last Admin Trade Name Freq PRN Reason Stop Dose Admin Sodium Chloride 1,000 mls @ 100 mls/hr 09/03/18 02:15 09/04/18 05:24 Normal Saline - IV Not Given ASDIR [facility] Ceftriaxone Sodium 1 gm/ 50 mls @ 100 mls/hr 09/03/18 10:00 09/03/18 13:09 Dextrose IVPB 09/04/18 09:59 100 mls/hr DAILY JUANITO Administration Insulin Aspart 1 vial 09/03/18 07:00 09/04/18 06:14 Novolog Vial Sliding Scale - SQ Not Given ACHS [facility] Protocol Insulin Detemir 15 units 09/03/18 22:00 09/03/18 22:17 Levemir Vial SQ 15 units HS JUANITO Administration ASSESSMENT/PLAN: 33 year old F with no significant past medical history, BIBEMS due to altered mental status for 1 day. #Acute toxic metabolic encephalopathy 2/2 infection vs HHS vs anemia -Neurology following -Head CT negative -b12, TSH, utox neg -improving -ceftriaxone DC -ID following -f/u ucx, bcx -d/c IVF #newly dx DM - A1c 9.4 -Glu 360, acetone 1+, anion gap normal, urine glu 3+ -ISS ACHS -BGM ACHS -Levemir 15 U sq HS #Microcytic anemia -may be due to chronic hx of heavy menses -Hb stable at 8.1 this AM -no further bleeding -seen by TAX DIRECTOR this AM, ok to dc w/ outpatient f/u -TV US shows adenomyosis #Elevated blood pressure - improving -no known hx of HTN -will monitor BP for now #FEN -no fluids indicated -Electrolytes wnl, routine bmp monitoring -Diabetic diet #Prophylaxis -scds #Disposition -full code -med-surg Visit type - Emergency Visit Emergency Visit: Yes ED Registration Date: 09/03/18 Care time: The patient presented to the Emergency Department on the above date and was hospitalized for further evaluation of their emergent condition. - New Patient This patient is new to me today: Yes Date on this admission: 09/04/18 - Critical Care Critical Care patient: No - Discharge Referral Referred to [facility] Med [facility] No
[2018-09-04 08:42] LABS: BASO % 1.2 % (0-2.0); EOS % 3.8 % (0-4.5); HEMATOCRIT 26.1 % (32.4-45.2); HEMOGLOBIN 8.1 GM/dL (10.7-15.3); LYMPH % 27.6 % (8-40); MCH 22.1 pg (25.7-33.7); MCHC 30.9 g/dl (32.0-36.0); MEAN CELL VOLUME 71.6 fl (80-96); MONO % 7.9 % (3.8-10.2); NEUT % 59.5 % (42.8-82.8); PLATELET COUNT 431 K/MM3 (134-434); RBC 3.64 M/mm3 (3.60-5.2); RDW 24.6 % (11.6-15.6); WHITE BLOOD COUNT 12.6 K/mm3 (4.0-10.0)
[2018-09-04] MEDS: FERROUS SO4 325 MG TABLET (FP) PO SCH ×2 (09:41→21:40)
[2018-09-04] MEDS: CYANOCOBALAMIN 1,000 MCG TABLET (FP) PO SCH (09:41)
--- NOTE | 2018-09-04 11:22 | PN ---
Progress Note (short form) - Note Progress Note: Neurology CHIEF COMPLAINT:altered mental status HISTORY OF PRESENT ILLNESS: 33 year old female with no significant past medical history, BIBEMS due to altered mental status for 1 day. Patient provided limited history, unable to recall anything that had happened recently, or the last time she was well. Patient would answer yes or no to questions in ER per notes, and could not answer in sentences. Most of the history is from the , reporting that he found the patient clicking on the mouse on a computer that was turned off and was not responding to him on day of admission. He called EMS, and blood sugar was noted to be >400. She denied fever, chills, headache, dizziness, neck pain, changes in vision, nausea, vomiting, chest pain, SOB, palpitations, abdominal pain, diarrhea, urinary symptoms, numbness or tingling. Of note, her Hgb was 5.3, and Glu 360, acetone 1+ in ER. Lumbar tap done, 0 Wbc. UA with 73 wbc, 1+ LYNSEY, 3+glucose. Yesterday morning, patient was starting to speak, she knows she 's at [facility] as well as Sep 03 but did not provide me the year, which she is able to now. Is getting medically optimized, RBC transfusion provided. ABx for UTI being given. Increased verbalization and more conversive today. Active Medications Cyanocobalamin (Vitamin B12 -) 1,000 mcg PO DAILY [facility] Last Admin: 09/04/18 09:41 Dose: 1,000 mcg Ferrous Sulfate (Feosol -) 325 mg PO BID [facility] Last Admin: 09/04/18 09:41 Dose: 325 mg Insulin Aspart (Novolog Vial Sliding Scale -) 1 vial SQ ACHS [facility]; Protocol Last Admin: 09/04/18 11:06 Dose: 4 units Insulin Detemir (Levemir Vial) 15 units SQ HS [facility] Last Admin: 09/03/18 22:17 Dose: 15 units PHYSICAL EXAMINATION Vital Signs Temperature 98.4 F 09/04/18 10:19 Pulse Rate 89 09/04/18 10:19 Respiratory Rate 20 09/04/18 10:19 Blood Pressure 154/88 09/04/18 10:19 O2 Sat by Pulse Oximetry (%) 96 09/04/18 09:00 GENERAL: Awake and alert, orientedx3, in no acute distress. HEAD: Normal with no signs of trauma. EYES: PERRLA, EOMI, sclera anicteric, pale palpebral conjunctivae. EARS, NOSE, THROAT: Ears normal, oropharynx clear without exudates. Moist mucous membranes. NECK: Normal range of motion, supple without lymphadenopathy, JVD, or masses. LUNGS: Breath sounds equal, clear to auscultation bilaterally. HEART: Tachycardic, +holosystolic murmur at LUSB ABDOMEN: Soft, nontender, not distended, normoactive bowel sounds. MUSCULOSKELETAL: Normal range of motion at all joints. No bony deformities or tenderness. No CVA tenderness. UPPER EXTREMITIES: 2+ pulses, warm, well-perfused. No peripheral edema. LOWER EXTREMITIES: 2+ pulses, warm, well-perfused. No peripheral edema. NEUROLOGICAL: AAOx3. Cranial nerves II-XII intact. Normal speech. Motor strength 5/5, Sensation intact. PSYCHIATRIC: Cooperative. Good eye contact. SKIN: Warm, dry, normal turgor, no rashes or lesions noted, normal capillary refill. CBCD WBC 12.6 K/mm3 (4.0-10.0) H 09/04/18 06:00 RBC 3.64 M/mm3 (3.60-5.2) 09/04/18 06:00 Hgb 8.1 GM/dL (10.7-15.3) L 09/04/18 06:00 Hct 26.1 % (32.4-45.2) L 09/04/18 06:00 MCV 71.6 fl (80-96) L 09/04/18 06:00 MCHC 30.9 g/dl (32.0-36.0) L 09/04/18 06:00 RDW 24.6 % (11.6-15.6) H 09/04/18 06:00 Plt Count 431 K/MM3 (134-434) 09/04/18 06:00 MPV 8.0 fl (7.5-11.1) 09/04/18 06:00 CMP Sodium 140 mmol/L (136-145) 09/03/18 05:45 Potassium 3.6 mmol/L (3.5-5.1) 09/03/18 05:45 Chloride 108 mmol/L (98-107) H 09/03/18 05:45 Carbon Dioxide 26 mmol/L (21-32) 09/03/18 05:45 Anion Gap 6 MMOL/L (8-16) L 09/03/18 05:45 BUN 8 mg/dL (7-18) 09/03/18 05:45 Creatinine 0.5 mg/dL (0.55-1.3) L 09/03/18 05:45 Creat Clearance w eGFR > 60 (>60) 09/03/18 05:45 Random Glucose 275 mg/dL (74-106) H 09/03/18 05:45 Calcium 8.0 mg/dL (8.5-10.1) L 09/03/18 05:45 Total Bilirubin 0.8 mg/dL (0.2-1) 09/03/18 05:45 AST 6 U/L (15-37) L 09/03/18 05:45 ALT 10 U/L (13-61) L 09/03/18 05:45 Alkaline Phosphatase 62 U/L (45-117) 09/03/18 05:45 Total Protein 6.5 g/dl (6.4-8.2) 09/03/18 05:45 Albumin 3.1 g/dl (3.4-5.0) L 09/03/18 05:45 CARDIAC ENZYMES Creatine Kinase 61 U/L (26-192) 09/02/18 21:12 Troponin I 0.02 ng/ml (0.00-0.05) 09/02/18 21:12 Diagnostics Transvaginal US - completed Head CT - completed ASSESSMENT/PLAN: 33 year old female with no significant past medical history, BIBEMS due to altered mental status for 1 day. Patient provided limited history, unable to recall anything that had happened recently, or the last time she was well. Patient would answer yes or no to questions in ER per notes, and could not answer in sentences. Most of the history is from the , reporting that he found the patient clicking on the mouse on a computer that was turned off and was not responding to him on day of admission. He called EMS, and blood sugar was noted to be >400. She denied fever, chills, headache, dizziness, neck pain, changes in vision, nausea, vomiting, chest pain, SOB, palpitations, abdominal pain, diarrhea, urinary symptoms, numbness or tingling. Of note, her Hgb was 5.3, and Glu 360, acetone 1+ in ER. Lumbar tap done, 0 Wbc. UA with 73 wbc, 1+ LYNSEY, 3+glucose. Yesterday morning, patient is starting to speak, she knows she' s at [facility] as well as Sep 03 but did not provide me the year. Is getting medically optimized, RBC being given at bedside. AMS likely multifactorial, sepsis from UTI vs hyperglycemia vs anemia. CT head without acute changes. Is getting medically optimized, RBC transfusion provided. ABx for UTI being given. Increased verbalization and more conversive today. Continue treatment for UTI, abx as per primary/ID. Optimize hyperglycemia, increased hydration. DVT ppx. Improving mental status, continue medical mgmt.
[2018-09-04 11:48] LABS: ALBUMIN 3.2 g/dl (3.4-5.0); ALK PHOS 60 U/L (45-117); ANION GAP 7 MMOL/L (8-16); BILIRUBIN,TOTAL 0.6 mg/dL (0.2-1); BLOOD UREA NITROGEN 13 mg/dL (7-18); CHLORIDE 110 mmol/L (98-107); CO2 26 mmol/L (21-32); CREATININE 0.6 mg/dL (0.55-1.3); GLUCOSE,RANDOM 184 mg/dL (74-106); MAGNESIUM 1.9 mg/dL (1.8-2.4); PHOSPHOROUS 3.2 mg/dL (2.5-4.9); POTASSIUM 3.4 mmol/L (3.5-5.1); SGOT/AST 10 U/L (15-37); SGPT/ALT 10 U/L (13-61); SODIUM 142 mmol/L (136-145); TOT PROT 6.3 g/dl (6.4-8.2)
--- NOTE | 2018-09-04 12:37 | PN ---
Progress Note (short form) - Note Progress Note: mental status back to baseline alert, smaling normal response time Vital Signs Period Temp Pulse Resp BP Sys/Floyd Pulse Ox Last 24 Hr 98.4 F-98.9 F 73-92 18-20 130-154/77-88 95-96 cor-rrr lungs clear abd soft,nt ext no edema CBC, BMP 09/04/18 06:00 09/04/18 06:00 Microbiology 09/02/18 19:41 Urine - Urine Clean Catch Urine Culture - Final 09/02/18 23:33 Cerebral Spinal Fluid - Lumbar Puncture Gram Stain - Final 09/02/18 23:33 Cerebral Spinal Fluid - Lumbar Puncture CSF Culture - Preliminary 09/02/18 20:30 Blood - Peripheral Venous Blood Culture - Preliminary NO GROWTH OBTAINED AFTER 24 HOURS, INCUBATION TO CONTINUE FOR 4 DAYS. 09/02/18 20:30 Blood - Peripheral Venous Blood Culture - Preliminary NO GROWTH OBTAINED AFTER 24 HOURS, INCUBATION TO CONTINUE FOR 4 DAYS. a/p altared mental status- most likely multifactorial severe anemia new diabetes -hgba1c over 9 urine culture negative,sent before antibiotics were given in ED- can d/c rocephin d/w patient and spouse at bedside refuses HIV testing at this time- denies RF please call back if needed Problem List - Problems (1) Altered mental status Code(s): R41.82 - ALTERED MENTAL STATUS, UNSPECIFIED (2) Anemia Code(s): D64.9 - ANEMIA, UNSPECIFIED (3) Diabetes mellitus Code(s): E11.9 - TYPE 2 DIABETES MELLITUS WITHOUT COMPLICATIONS (4) UTI (urinary tract infection) Code(s): N39.0 - URINARY TRACT INFECTION, SITE NOT SPECIFIED
--- NOTE | 2018-09-04 16:01 | PN ---
Progress Note (short form) - Note Progress Note: medical assistant ob gyn consult done, report to follow no acute medical assistant ob gyn issue at this time , hx of heavy menses , sono possible adenomyosis no active vaginal bleeding at this time, suggest r/o other causes of anemia , advised to make appointment in the office or clinic for follow up and tx,with OCP,or iud advised pap smear keep menstural diary
[2018-09-04] MEDS ORDERED: INSULIN (NOVOLOG) ASPART 100 UNITS/ML 10ML VIAL ONE (16:13)
[2018-09-04] MEDS ORDERED: POTASSIUM CHLORIDE TABS 20 MEQ TABLET.ER (FP) PO ONE (17:07)
--- NOTE | 2018-09-04 19:51 | PN ---
Teaching Attending Note Name of Resident: Ga Em ATTENDING PHYSICIAN STATEMENT I saw and evaluated the patient. I reviewed the resident's note and discussed the case with the resident. I agree with the resident's findings and plan as documented. SUBJECTIVE: Confusion completely resolved. Now oriented and participatory. No complaints. Feels well. Denies chest pain/palpitations/shortness of breath/ lightheadedness. No further PV bleeding. OBJECTIVE: Afebrile, Hemodynamically Stable. Last Vital Signs Temp Pulse Resp BP Pulse Ox 98.8 F 86 18 155/90 96 09/04/18 15:31 09/04/18 15:31 09/04/18 15:31 09/04/18 15:31 09/04/18 09:00 Neuro - AAO x 3. BETH. EOMI. Tone/Power normal all 4 extremities. Heart - S1, S2, soft, SM Lungs - clear to auscultation, no crackles/wheeze. Abdomen - high BMI. Soft, non-tender. Bowel Sounds normal. Extremities - no edema, no calf tenderness Laboratory Results - last 24 hr 09/03/18 09/03/18 09/03/18 05:45 20:30 22:15 WBC 15.1 H RBC 3.71 Hgb 8.4 L Hct 26.7 L D MCV 71.8 L MCH 22.7 L MCHC 31.6 L RDW 24.8 H Plt Count 464 H MPV 7.9 Absolute Neuts (auto) 10.9 H Neutrophils % 71.7 Lymphocytes % 18.7 D Monocytes % 6.7 Eosinophils % 2.3 D Basophils % 0.6 Nucleated RBC % 1 H Sodium Potassium Chloride Carbon Dioxide Anion Gap BUN Creatinine Creat Clearance w eGFR POC Glucometer 288 Random Glucose Calcium Phosphorus Magnesium Iron 22 L TIBC 369 Iron Saturation 6 L Total Bilirubin AST ALT Alkaline Phosphatase Total Protein Albumin 09/04/18 09/04/18 09/04/18 06:00 06:00 06:12 WBC 12.6 H RBC 3.64 Hgb 8.1 L Hct 26.1 L MCV 71.6 L MCH 22.1 L MCHC 30.9 L RDW 24.6 H Plt Count 431 MPV 8.0 Absolute Neuts (auto) 7.5 Neutrophils % 59.5 Lymphocytes % 27.6 D Monocytes % 7.9 Eosinophils % 3.8 Basophils % 1.2 Nucleated RBC % 0 Sodium 142 Potassium 3.4 L Chloride 110 H Carbon Dioxide 26 Anion Gap 7 L BUN 13 Creatinine 0.6 Creat Clearance w eGFR > 60 POC Glucometer 193 Random Glucose 184 H Calcium 8.0 L Phosphorus 3.2 Magnesium 1.9 Iron TIBC Iron Saturation Total Bilirubin 0.6 AST 10 L ALT 10 L Alkaline Phosphatase 60 Total Protein 6.3 L Albumin 3.2 L 09/04/18 09/04/18 11:04 16:08 WBC RBC Hgb Hct MCV MCH MCHC RDW Plt Count MPV Absolute Neuts (auto) Neutrophils % Lymphocytes % Monocytes % Eosinophils % Basophils % Nucleated RBC % Sodium Potassium Chloride Carbon Dioxide Anion Gap BUN Creatinine Creat Clearance w eGFR POC Glucometer 271 244 Random Glucose Calcium Phosphorus Magnesium Iron TIBC Iron Saturation Total Bilirubin AST ALT Alkaline Phosphatase Total Protein Albumin Current Medications Generic Name Dose Route Start Last Admin Trade Name Freq PRN Reason Stop Dose Admin Cyanocobalamin 1,000 mcg 09/04/18 10:00 09/04/18 09:41 Vitamin B12 - PO 1,000 mcg DAILY JUANITO Administration Ferrous Sulfate 325 mg 09/04/18 10:00 09/04/18 09:41 Feosol - PO 325 mg BID JUANITO Administration Insulin Aspart 1 vial 09/03/18 07:00 09/04/18 16:13 Novolog Vial Sliding Scale - SQ 2 units ACHS JUANITO Administration Protocol Insulin Detemir 15 units 09/03/18 22:00 09/03/18 22:17 Levemir Vial SQ 15 units HS JUANITO Administration ASSESSMENT AND PLAN: 33 year old female with no significant PMH, broought to ED for change in mental status. Patient is unable to recall events or to explain why she is in the hospital. She denies any drug use. reported that the patient was staring blankly at a computer that was switched off, clicking aimlessly. Found to have Severe hyperglycemia and Severe Anemia. Not known diabetic nor anemic. Patient does report heavy periods. 1. Acute Encephalopathy, likely metabolic - now resolved. Patient at baseline normal mental status Unclear precipitant ?Hyperglycemia versus Severe Anemia. No serum osmolality measured at presentation. CT Head - No acute intra-cranial findings Utox negative Septic work-up negative, CXR neg, CSF neg, started empirically on Ceftriaxone for possible UTI - will discontinue due to neg Urine Cx. ID and Neuro consulted/following. 2. Hyperglycemia, newly diagnosed DM 2 A1C 9.4 Initiated on Levemir - will increase to 20 units qhs (glucose readings still high) along with Novolog sliding scale Patient does not have a PCP and does not see a physician regularly Will consult Endocrinology to for further recommendations regarding discharge regimen and plans for out-patient follow up. 3. Anemia - Multifactorial: sec to Chronic Blood Loss Anemia sec to Menorrhagia and B12 deficiency Microcytic H/H 8.1/26, up from 5.8/19.5 s/p 3 units PRBCs Ferritin 2.7 - started on Fe supplementation. B12 level 248 - started on Cyanocobalamin. Transvaginal US - possible adenomyosis/endometrial thickening. Gynecology consulted - recommend out-patient follow up. DVT Px - SCDs. Lovenox held due to blood loss anemia.
[2018-09-04] MEDS ORDERED: INSULIN (LEVEMIR) 100 UNITS/ML UNITS SQ SCH (19:53)
[2018-09-05] MEDS: INSULIN SLIDING SCALE (NOVOLOG) 1 VIAL SQ SCH ×2 (06:31→11:41)
--- NOTE | 2018-09-05 07:23 | CONS ---
DATE OF CONSULTATION: 09/04/2018 REASON FOR CONSULTATION: Anemia and history of syncope. This patient is a 33-year-old female, 0 para 0, who states her periods are normal, but last month, she had a period twice in 1 month and it was heavy. She was brought to the ER, complaining that she had passed out at her computer desk and her had found her unresponsive at her desk. She denies any history of GI bleed, but has not complained of vaginal staining or bleeding at this time. On admission, hemoglobin was 5.3 and she has received 2 units of blood transfusion. PHYSICAL EXAMINATION: General: Patient alert and oriented, but with a flat affect and poor historian. Vital Signs: Her temperature was 98.4, pulse was 89, blood pressure 154/88. Abdomen: Soft, nontender. No masses and no ascites. Pelvic: External genitalia normal, vagina was normal. No active bleeding. Cervix was clean. No gross lesion, no cervical motion tenderness. Uterus appeared to be slightly prominent, but no masses were felt. Adnexa with no masses felt and cul-de-sac was nontender with no masses. IMPRESSION: Anemia, possibly secondary to heavy menses; rule out other causes of anemia such as gastrointestinal bleed or chronic anemia, possible nutritional anemia. Since the patient is not actively bleeding at this time, the patient was advised to follow up as an outpatient. Importance of Pap smear discussed and also advised possible oral contraception or hormonal IUD for control of heavy bleeding. The patient will follow up in the clinic for followup. Importance of followup was discussed. Advised if she has heavy bleeding or dizziness, go to the emergency room. Also, patient was advised to take iron vitamin for the anemia at this time. KAYE BRIGHT M.D. [id number]
[2018-09-05 07:52] LABS: HEMATOCRIT 25.2 % (32.4-45.2); HEMOGLOBIN 8.1 GM/dL (10.7-15.3); MCH 23.2 pg (25.7-33.7); MCHC 32.2 g/dl (32.0-36.0); MEAN CELL VOLUME 72.1 fl (80-96); MEAN PLT VOLUME 8.3 fl (7.5-11.1); PLATELET COUNT 409 K/MM3 (134-434); RBC 3.49 M/mm3 (3.60-5.2); RDW 25.6 % (11.6-15.6); WHITE BLOOD COUNT 13.1 K/mm3 (4.0-10.0)
[2018-09-05 08:17] LABS: ANION GAP 6 MMOL/L (8-16); BLOOD UREA NITROGEN 11 mg/dL (7-18); CALCIUM 8.1 mg/dL (8.5-10.1); CHLORIDE 108 mmol/L (98-107); CO2 27 mmol/L (21-32); CREATININE 0.6 mg/dL (0.55-1.3); GLUCOSE,RANDOM 149 mg/dL (74-106); PHOSPHOROUS 4.3 mg/dL (2.5-4.9); POTASSIUM 3.5 mmol/L (3.5-5.1); SODIUM 141 mmol/L (136-145)
[2018-09-05] MEDS: CYANOCOBALAMIN 1,000 MCG TABLET (FP) PO SCH (09:40)
[2018-09-05] MEDS: FERROUS SO4 325 MG TABLET (FP) PO SCH (09:40)
--- NOTE | 2018-09-05 11:52 | PN ---
Progress Note (short form) - Note Progress Note: Neurology CHIEF COMPLAINT:altered mental status HISTORY OF PRESENT ILLNESS: 33 year old female with no significant past medical history, BIBEMS due to altered mental status for 1 day. Patient provided limited history, unable to recall anything that had happened recently, or the last time she was well. Patient would answer yes or no to questions in ER per notes, and could not answer in sentences. Most of the history is from the , reporting that he found the patient clicking on the mouse on a computer that was turned off and was not responding to him on day of admission. He called EMS, and blood sugar was noted to be >400. She denied fever, chills, headache, dizziness, neck pain, changes in vision, nausea, vomiting, chest pain, SOB, palpitations, abdominal pain, diarrhea, urinary symptoms, numbness or tingling. Of note, her Hgb was 5.3, and Glu 360, acetone 1+ in ER. Lumbar tap done, 0 Wbc. UA with 73 wbc, 1+ LYNSEY, 3+glucose. Morning of 09/03/18, patient was starting to speak, she knows she's at [facility] as well as date, RBC transfusion completed, Hgb improved to 8. ABx for UTI given. Increased verbalization and more conversive today. Was dressed in regular clothes and appeared to ready for discharge, discussed with nurse and patient not discharged at this time. Explained clinical course thus far to patient and sample supervisor at bedside. Neurologically improved. Active Medications Cyanocobalamin (Vitamin B12 -) 1,000 mcg PO DAILY [facility] Last Admin: 09/05/18 09:40 Dose: 1,000 mcg Ferrous Sulfate (Feosol -) 325 mg PO BID [facility] Last Admin: 09/05/18 09:40 Dose: 325 mg Insulin Aspart (Novolog Vial Sliding Scale -) 1 vial SQ ACHS [facility]; Protocol Last Admin: 09/05/18 11:41 Dose: 4 units Insulin Detemir (Levemir Vial) 20 units SQ HS [facility] Last Admin: 09/04/18 21:40 Dose: 20 units PHYSICAL EXAMINATION Vital Signs Temperature 98.1 F 09/05/18 09:00 Pulse Rate 81 09/05/18 09:00 Respiratory Rate 20 09/05/18 09:00 Blood Pressure 138/79 09/05/18 09:00 O2 Sat by Pulse Oximetry (%) 96 09/04/18 21:00 GENERAL: Awake and alert, orientedx3, in no acute distress. HEAD: Normal with no signs of trauma. EYES: PERRLA, EOMI, sclera anicteric, pale palpebral conjunctivae. EARS, NOSE, THROAT: Ears normal, oropharynx clear without exudates. Moist mucous membranes. NECK: Normal range of motion, supple without lymphadenopathy, JVD, or masses. LUNGS: Breath sounds equal, clear to auscultation bilaterally. HEART: Tachycardic, +holosystolic murmur at LUSB ABDOMEN: Soft, nontender, not distended, normoactive bowel sounds. MUSCULOSKELETAL: Normal range of motion at all joints. No bony deformities or tenderness. No CVA tenderness. UPPER EXTREMITIES: 2+ pulses, warm, well-perfused. No peripheral edema. LOWER EXTREMITIES: 2+ pulses, warm, well-perfused. No peripheral edema. NEUROLOGICAL: AAOx3. Cranial nerves II-XII intact. Normal speech. Motor strength 5/5, Sensation intact. PSYCHIATRIC: Cooperative. Good eye contact. SKIN: Warm, dry, normal turgor, no rashes or lesions noted, normal capillary refill. CBCD WBC 13.1 K/mm3 (4.0-10.0) H 09/05/18 06:30 RBC 3.49 M/mm3 (3.60-5.2) L 09/05/18 06:30 Hgb 8.1 GM/dL (10.7-15.3) L 09/05/18 06:30 Hct 25.2 % (32.4-45.2) L 09/05/18 06:30 MCV 72.1 fl (80-96) L 09/05/18 06:30 MCHC 32.2 g/dl (32.0-36.0) 09/05/18 06:30 RDW 25.6 % (11.6-15.6) H 09/05/18 06:30 Plt Count 409 K/MM3 (134-434) 09/05/18 06:30 MPV 8.3 fl (7.5-11.1) 09/05/18 06:30 CMP Sodium 141 mmol/L (136-145) 09/05/18 06:30 Potassium 3.5 mmol/L (3.5-5.1) 09/05/18 06:30 Chloride 108 mmol/L (98-107) H 09/05/18 06:30 Carbon Dioxide 27 mmol/L (21-32) 09/05/18 06:30 Anion Gap 6 MMOL/L (8-16) L 09/05/18 06:30 BUN 11 mg/dL (7-18) 09/05/18 06:30 Creatinine 0.6 mg/dL (0.55-1.3) 09/05/18 06:30 Creat Clearance w eGFR > 60 (>60) 09/05/18 06:30 Random Glucose 149 mg/dL (74-106) H 09/05/18 06:30 Calcium 8.1 mg/dL (8.5-10.1) L 09/05/18 06:30 Total Bilirubin 0.6 mg/dL (0.2-1) 09/04/18 06:00 AST 10 U/L (15-37) L 09/04/18 06:00 ALT 10 U/L (13-61) L 09/04/18 06:00 Alkaline Phosphatase 60 U/L (45-117) 09/04/18 06:00 Total Protein 6.3 g/dl (6.4-8.2) L 09/04/18 06:00 Albumin 3.2 g/dl (3.4-5.0) L 09/04/18 06:00 CARDIAC ENZYMES Creatine Kinase 61 U/L (26-192) 09/02/18 21:12 Troponin I 0.02 ng/ml (0.00-0.05) 09/02/18 21:12 Diagnostics Transvaginal US - completed Head CT - completed ASSESSMENT/PLAN: 33 year old female with no significant past medical history, BIBEMS due to altered mental status for 1 day. Patient provided limited history, unable to recall anything that had happened recently, or the last time she was well. Patient would answer yes or no to questions in ER per notes, and could not answer in sentences. Most of the history is from the , reporting that he found the patient clicking on the mouse on a computer that was turned off and was not responding to him on day of admission. He called EMS, and blood sugar was noted to be >400. She denied fever, chills, headache, dizziness, neck pain, changes in vision, nausea, vomiting, chest pain, SOB, palpitations, abdominal pain, diarrhea, urinary symptoms, numbness or tingling. Of note, her Hgb was 5.3, and Glu 360, acetone 1+ in ER. Lumbar tap done, 0 Wbc. UA with 73 wbc, 1+ LYNSEY, 3+glucose. Morning of 09/03/18 patient is starting to speak, she knows she' s at [facility] as well as Sep 03 but did not provide me the year. Is getting medically optimized, RBC being given at bedside. AMS likely multifactorial, sepsis from UTI vs hyperglycemia vs anemia. CT head without acute changes. Is getting medically optimized, RBC transfusion provided. ABx for UTI being given. Increased verbalization and more conversive today. Was dressed in regular clothes and appeared to ready for discharge, discussed with nurse and patient not discharged at this time. Explained clinical course thus far to patient and sample supervisor at bedside. Neurologically improved. Abx as per primary/ID for UTI. Optimize hyperglycemia, increased hydration. DVT ppx.
[2018-09-05 15:15] VITALS: BP 128/88; PULSE 84; TEMP 98.7
--- NOTE | 2018-09-05 15:27 | DS ---
Physical Exam: SUBJECTIVE: Confusion completely resolved. Now oriented and participatory. No complaints. Feels well. Denies chest pain/palpitations/shortness of breath/ lightheadedness. No further PV bleeding. OBJECTIVE: Afebrile, Hemodynamically Stable. Last Vital Signs Temp Pulse Resp BP Pulse Ox 98.1 F 81 20 138/79 96 09/05/18 09:00 09/05/18 09:00 09/05/18 09:00 09/05/18 09:00 09/05/18 09:00 Neuro - AAO x 3. BETH. EOMI. Tone/Power normal all 4 extremities. Heart - S1, S2, soft, SM Lungs - clear to auscultation, no crackles/wheeze. Abdomen - high BMI. Soft, non-tender. Bowel Sounds normal. Extremities - no edema, no calf tenderness Laboratory Results - last 24 hr 09/04/18 09/04/18 09/04/18 16:08 21:00 21:35 WBC RBC Hgb Hct MCV MCH MCHC RDW Plt Count MPV Sodium Potassium Chloride Carbon Dioxide Anion Gap BUN Creatinine Creat Clearance w eGFR POC Glucometer 244 269 Random Glucose Calcium Phosphorus Stool Occult Blood Negative 09/05/18 09/05/18 09/05/18 06:30 06:30 06:30 WBC 13.1 H RBC 3.49 L Hgb 8.1 L Hct 25.2 L MCV 72.1 L MCH 23.2 L MCHC 32.2 RDW 25.6 H Plt Count 409 MPV 8.3 Sodium 141 Potassium 3.5 Chloride 108 H Carbon Dioxide 27 Anion Gap 6 L BUN 11 Creatinine 0.6 Creat Clearance w eGFR > 60 POC Glucometer 146 Random Glucose 149 H Calcium 8.1 L Phosphorus 4.3 Stool Occult Blood 09/05/18 11:19 WBC RBC Hgb Hct MCV MCH MCHC RDW Plt Count MPV Sodium Potassium Chloride Carbon Dioxide Anion Gap BUN Creatinine Creat Clearance w eGFR POC Glucometer 263 Random Glucose Calcium Phosphorus Stool Occult Blood Date of Admission:09/03/18 Date of Discharge: 09/05/18 Minutes to complete discharge: 40 Discharge Summary Reason For Visit: FEVER, ANEMIA, ALTERED MENTAL STATUS Current Active Problems Altered mental status (Acute) Anemia (Acute) Diabetes mellitus (Acute) Fever (Acute) UTI (urinary tract infection) (Acute) Hospital Course: 33 year old female with no significant PMH, brought to ED for change in mental status. Patient is unable to recall events or to explain why she is in the hospital. She denies any drug use. reported that the patient was staring blankly at a computer that was switched off, clicking aimlessly. Found to have Severe hyperglycemia and Severe Anemia H/H 5.8/19.5. Not known diabetic nor anemic. Patient does report heavy periods. Currently no active bleeding. She was found to have A1C 9.4 and started on Insulin regimen for newly diagnosed DM 2. She was transfused 3 units of PRBCs and started on Fe supplementation. She was seen by Gynecology and referred to out-patient clinic for further management. She will be discharged on Levemir 20 units at bedtime and advised to follow on Thursday with her PCP and with Endocrinology. 1. Acute Encephalopathy, likely metabolic - now resolved. Patient at baseline normal mental status Unclear precipitant ?Hyperglycemia versus Severe Anemia. No serum osmolality measured at presentation. CT Head - No acute intra-cranial findings Utox negative Septic work-up negative, CXR neg, CSF neg, started empirically on Ceftriaxone for possible UTI - discontinued due to neg Urine Cx. ID and Neuro consulted. 2. Hyperglycemia, newly diagnosed DM 2 A1C 9.4 Initiated on Levemir - up-titrated to 20 units qhs Endocrinology consulted to for further recommendations regarding discharge regimen. However patient has not been seen by Endocrinology yet and she wants to be discharged. She was educated re: Diabetes disease process and management including Insulin injection. She will be discharged on Levemir 20 units at bedtime with advice to follow with a PCP on 09/07/18. 3. Anemia - Multifactorial: sec to Chronic Blood Loss Anemia sec to Menorrhagia and B12 deficiency Microcytic H/H .08/14, up from 5.8/19.5 s/p 3 units PRBCs Ferritin 2.7 - started on Fe supplementation. B12 level 248 - started on Cyanocobalamin. Transvaginal US - possible adenomyosis/endometrial thickening. Gynecology consulted - recommend out-patient follow up. She is medically, hemodynamically, and neurologically stable for discharge - currently back to normal mental status. Condition: Good - Instructions Diet, Activity, Other Instructions: Diabetic Diet Referrals: Scarlett Miles MD [Staff Physician] - 1 Week Disposition: HOME - Home Medications Comprehensive Discharge Medication List: Ambulatory Orders Cyanocobalamin [Vitamin B12 -] 1,000 mcg PO DAILY 30 Days #30 tablet 09/05/18 Ferrous Sulfate [Feosol] 325 mg PO BID 30 Days #60 ud 09/05/18 Insulin (Levemir) [Levemir Vial] 20 units SQ HS 30 Days #1 vial 09/05/18 Problem List - Problems (1) Altered mental status Code(s): R41.82 - ALTERED MENTAL STATUS, UNSPECIFIED (2) Anemia Code(s): D64.9 - ANEMIA, UNSPECIFIED (3) Diabetes mellitus Code(s): E11.9 - TYPE 2 DIABETES MELLITUS WITHOUT COMPLICATIONS This patient is new to me today: No Emergency Visit: Yes ED Registration Date: 09/03/18 Care time: The patient presented to the Emergency Department on the above date and was hospitalized for further evaluation of their emergent condition. Critical Care patient: No - Discharge Referral Referred to [facility] No
== END 2018-09-05 16:38 | disposition home or self-care (01) | DRG 420 ==
LOC: JER 18:46 → JERBED 09-03 00:45 → J8W 09-03 04:09
PROVIDERS: ADMIT Internal Medicine
PROC: 009U3ZX Drainage of Spinal Canal, Percutaneous Approach, Diagnostic (ICD-10-PCS; principal; 2018-09-02)
DX: E11.65 Type 2 diabetes mellitus with hyperglycemia (principal); G93.41 Metabolic encephalopathy; R50.9 Fever, unspecified; R00.0 Tachycardia, unspecified; K64.9 Unspecified hemorrhoids; I10 Essential (primary) hypertension; D64.9 Anemia, unspecified; E66.9 Obesity, unspecified; Z68.30 Body mass index [BMI] 30.0-30.9, adult; R41.82 Altered mental status, unspecified; N39.0 Urinary tract infection, site not specified; N92.0 Excessive and frequent menstruation with regular cycle; E53.8 Deficiency of other specified B group vitamins
CPT/HCPCS: 36415; 36430; 36511; 70450-TC; 71045-TC-FY; 76830-TC; 80048; 80053; 80061; 80307; 81003; 81015; 82009; 82272; 82550; 82607; 82728; 82803; 82945; 82962; 83036; 83540; 83550; 83605; 83721; 83735; 83930; 84100; 84157; 84443; 84484; 84703; 85025; 85027; 85044; 85610; 86850; 86900; 86901; 86922; 87040; 87070; 87086; 87205; 87529; 87804; 93005; 93010; 99285-25; J0131; J7030; P9038; P9058